=== PATIENT | female | born 1990 | race African-American/Black ===

== ENCOUNTER 2023-11-08 22:28 | Inpatient (IN) ==
[2023-11-08 23:58] LABS: Adenovirus PCR Not Detected (NotDetected); Bordetella parapertussis PCR Not Detected (NotDetected); Bordetella pertussis PCR Not Detected (NotDetected); Chlamydia pneumoniae PCR Not Detected (NotDetected); Coronavirus 229E PCR Not Detected (NotDetected); Coronavirus CoV-2 (COVID19)PCR Not Detected (NotDetected); Coronavirus HKU1 PCR Not Detected (NotDetected); Coronavirus NL63 PCR Not Detected (NotDetected); Coronavirus OC43PCR Not Detected (NotDetected); Human Metapneumovirus PCR Not Detected (NotDetected); Influenza A PCR Not Detected (NotDetected); Influenza B PCR Not Detected (NotDetected); Mycoplasma pneumoniae PCR Not Detected (NotDetected); Parainfluenza Virus 1 PCR Not Detected (NotDetected); Parainfluenza Virus 2 PCR Not Detected (NotDetected); Parainfluenza Virus 3 PCR Not Detected (NotDetected); Parainfluenza Virus 4 PCR Not Detected (NotDetected); Respiratory Syncytial VirusPCR Not Detected (NotDetected); Rhinovirus/Enterovirus PCR Not Detected (NotDetected)
--- NOTE | 2023-11-09 00:21 | Emergency Department Note ---
History of Present Illness General Chief complaint: Arm Pain Stated complaint: R Arm Pain, Fistula Problems Time Seen by Provider: 11/08/23 22:43 History of Present Illness Maximum Pain Intensity: 7 This 33-year-old female who was just discharged from [facility] yesterday to [facility] with a history of lupus that was hospitalized for 2 weeks presents the ER complaining of right arm pain for the past 2 weeks. Patient started states she is not sure what exactly happened to her arm. she does not remember much from her admission to [facility]. She was admitted for renal failure and has a fistula placed. She has been receiving dialysis Sunday. Patient was a subjective fever and chills and right bicep pain. She thinks she might of had an IV there. Patient denies chest pain, dyspnea, cough, congestion, leg pain or swelling. I pulled the records from [facility] and the patient was admitted for acute kidney injury that was exacerbated by lupus nephritis flare. She then had a renal biopsy that caused a hemorrhage to the kidney requiring arterial embolism. She then suffered from severe anemia from this. She then was transfused blood and experienced a delayed hemolytic transfusion reaction attributed to the JKa antigen. 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 She was treated for spontaneous bacterial peritonitis with multiple antibiotics. Allergies Allergy/AdvReac Type Severity Reaction Status Date / Time No Known Allergies Allergy Unverified 11/09/23 02:51 Past Med/Surg History Social History Feels Safe at Home: Yes Review of Systems A total of 10 systems reviewed and were otherwise negative Physical Exam Vital Signs Vital Signs - 24 hr 11/08/23 22:52 11/08/23 23:02 11/08/23 23:02 Temperature 37.5 C 37.5 C Temperature Source Oral Oral Pulse Rate 127 H 125 H Pulse Rate [Apical] 125 H Respiratory Rate 20 20 Blood Pressure 133/93 Blood Pressure [Left Arm] 133/93 Blood Pressure Mean 106 Blood Pressure Mean [Left Arm] 106 Pulse Oximetry 99 99 Oxygen Delivery Method Room Air Room Air Sepsis Recent Fever Within 48 Hours No Sepsis New/Unexplained Change in Mental Status No Sepsis Action Taken by Nursing No Action Required 11/08/23 23:02 11/09/23 02:12 11/09/23 02:52 Temperature Temperature Source Pulse Rate 127 H Pulse Rate [Apical] 128 H Respiratory Rate 17 Blood Pressure Blood Pressure [Left Arm] 128/83 Blood Pressure Mean Blood Pressure Mean [Left Arm] 98 Pulse Oximetry 99 98 Oxygen Delivery Method Room Air Room Air Sepsis Recent Fever Within 48 Hours Sepsis New/Unexplained Change in Mental Status Sepsis Action Taken by Nursing VITALS: Vitals are noted on the nurse's note and reviewed by myself. Vital signs stable. GENERAL: Pleasant female speaking in full sentences, in no acute distress, nondiaphoretic, well-developed well-nourished. SKIN: Capillary reflex less than 2 seconds. HEENT: Normocephalic. PERRLA. EOMI. Nares patent. Mucous membranes moist. Neck is supple without nuchal rigidity. HEART: Regular rate and rhythm LUNGS: Clear to auscultation bilaterally without wheezes, rales or rhonchi. No retractions or accessory muscle use. ABDOMEN: Positive bowel sounds x 4. Normal tympanic percussion. Soft, nontender, without masses or organomegaly. Rfancis sign negative. No guarding or rebound tenderness. no CVA tenderness MUSCULOSKELETAL: No gross musculoskeletal defects. Right bicep region tender to palpation indurated. Radial pulses +2 equal present bilaterally. Fistula to the left subclavian area without signs of infection. NEURO: Patient was alert and oriented to person place and time. No focal neurological deficits. Course Administered Medications Discontinued Medications Ceftriaxone Sodium (Rocephin) 1,000 mg in 50 mls @ 100 mls/hr IV NOW STA Stop: 11/09/23 03:17 Last Admin: 11/09/23 02:54 Dose: 100 mls/hr Documented By: DAVON Critical Care Time Critical Care Time: Yes Total Critical Care Time: 35 I have personally spent 35 minutes of critical care time in the direct management of this patient. This includes bedside care, interpretation of diagnostic studies, and testing, discussion with consultants, patient, and family members, and other required patient management activities. This 35 minutes is in excess of all separately billable procedures. Medical Decision Making Medical Records Attestation: I reviewed the patient's medical records. Home Medications Current Medication List: was personally reviewed by me Laboratory Data Attestation: I reviewed the patient's lab results. 11/09/23 00:20 11/09/23 00:20 Lab Results 11/08/23 11/09/23 11/09/23 Range/Units 22:54 00:20 02:10 WBC 1.60 L (4.8-10.8) K/ul RBC 2.66 L (4.20-5.40) M/uL Hgb 7.6 L (12.0-16.0) g/dl Hct 24.5 L (37.0-47.0) % MCV 92.1 (80.0-100.0) fL MCH 28.6 (25.0-34.0) pg MCHC 31.0 L (32.0-36.0) g/dL RDW Std Deviation 64.7 H (36.4-46.3) fL RDW Coeff of Evelio 19.6 H (11.5-14.5) % Plt Count 131 (130-400) K/uL MPV 10.4 (9.4-12.4) fL Neutrophils % (Manual) 51 % Lymphocytes % (Manual) 27 % Monocytes % (Manual) 18 % Eosinophils % (Manual) 1 % Myelocytes % (Man) 3 % Neutrophils # (Manual) 0.82 L (1.40-6.50) K/uL Total Absolute Neuts 0.82 L* (1.4-6.5) K/uL Lymphocytes # (Manual) 0.43 L (1.2-3.4) K/uL Total Abs Lymphocytes 0.43 L (1.2-3.4) K/uL Monocytes # (Manual) 0.29 (0.11-0.59) K/uL Eosinophils # (Manual) 0.02 (0-0.50) K/uL Myelocytes # (Manual) 0.05 H (0-0) K/uL Sodium 138 (136-145) mmol/L Potassium 4.4 (3.5-5.1) mmol/L Chloride 99 (98-107) mmol/L Carbon Dioxide 21 (21-32) mmol/L Anion Gap 18 H (3-11) BUN 37 H (6-23) mg/dl Creatinine 5.24 H* (0.6-1.2) mg/dl Est Cr Clr Drug Dosing 12.9 ml/min Est GFR ( Amer) 11.6 ml/min Est GFR (Non-Af Amer) 10.0 ml/min BUN/Creatinine Ratio 7.1 L (10-20) Glucose 73 (70-99(Fasting)) mg/dl Lactate 1.4 (0.4-2.0) mmol/L Calcium 8.8 (8.6-10.3) mg/dl Magnesium 1.8 (1.7-2.4) mg/dl Total Bilirubin 0.7 (0.2-1.0) mg/dl Direct Bilirubin 0.1 (0-0.2) mg/dl AST 24 (13-39) U/L ALT 8 (7-52) U/L Alkaline Phosphatase 86 (34-104) U/L Total Creatine Kinase 13 L (26-192) U/L Troponin I High Sens 25.9 H 27.4 H (0-14) pg/ml Total Protein 6.5 (6.0-8.3) gm/dl Albumin 3.1 L (3.4-5.0) gm/dl Procalcitonin 2.18 H (0-0.5) ng/ml HCG, Qual Negative (Negative) Adenovirus (PCR) Not Detected (NotDetected) B. pertussis DNA (PCR) Not Detected (NotDetected) B.parapertussis DNA PCR Not Detected (NotDetected) C. pneumoniae DNA (PCR) Not Detected (NotDetected) Coronavirus OC43 (PCR) Not Detected (NotDetected) Coronavirus HKU1 (PCR) Not Detected (NotDetected) Coronavirus 229E (PCR) Not Detected (NotDetected) SARS-CoV-2 (PCR) Not Detected (NotDetected) Coronavirus NL63 (PCR) Not Detected (NotDetected) Human Metapneumovir PCR Not Detected (NotDetected) Influenza Type A (PCR) Not Detected (NotDetected) Influenza Type B (PCR) Not Detected (NotDetected) M. pneumoniae (PCR) Not Detected (NotDetected) Parainfluenza 1 (PCR) Not Detected (NotDetected) Parainfluenza 2 (PCR) Not Detected (NotDetected) Parainfluenza 3 (PCR) Not Detected (NotDetected) Parainfluenza 4 (PCR) Not Detected (NotDetected) RSV (PCR) Not Detected (NotDetected) Entero/Rhino (PCR) Not Detected (NotDetected) Imaging Data Attestation: I personally reviewed and interpreted this imaging study as follows: Radiologist's Impression: Venous Doppler Study 11/08/23 22:52 Exam(s): US VENOUS RIGHT UPPER EXTREMITY EXAM: US Duplex Right Upper Extremity Veins CLINICAL HISTORY: Reason for exam: ? DVT. TECHNIQUE: Real-time duplex ultrasound scan of the right upper extremity veins integrating B-mode two-dimensional vascular structure, Doppler spectral analysis, color flow Doppler imaging and compression. COMPARISON: None. FINDINGS: Deep veins: Unremarkable. No DVT in the internal jugular, subclavian, axillary, or brachial veins. The veins demonstrate normal color flow, are normally compressible, with normal phasic flow and/or augmentation response. Superficial veins: Unremarkable. No thrombus in the visualized basilic and cephalic veins. Soft tissues: No acute findings. IMPRESSION: No ultrasonographic evidence of deep venous thrombosis involving the right upper extremity. Electronically signed by: Lauren Merrill MD 11/09/23 02:42 AM MDM Narrative Prior records reviewed and summarized above. Triage Nursing notes reviewed. Additional history obtained from the EMS The patient's history was concerning for swelling and pain in the arm Differential diagnosis: Etiologies such as DVT, musculoskeletal, infection, joint effusion, trauma, lymphedema, idiopathic, CHF, as well as others were entertained.. Physical examination: The physical examination revealed Neurovascularly intact. ER treatment provided: An order was placed for continuous cardiac monitoring. The monitor shows a rate of 60-1 30 with a sinus rhythm per my interpretation. Rocephin, heparin with bolus On reassessment the patient felt better. Diagnostics interpreted by me: The labs Independently Interpreted by myself revealed stable anemia per chart review from [facility] records, stable creatinine per chart review per dental records. Patient is due for dialysis in the morning Blood cultures pending Imaging studies: Chest x-ray with no acute consolidation, pneumothorax or free air per my independent interpretation DVT as above Consultation: A consultation was placed with the hospitalist. The case was discussed and diagnostics were reviewed. The patient was evaluated in the ER for further treatment. Hospitalist does recommend heparin with bolus. This appears to be consistent with extensive DVT to the right arm and subclavian area. Patient started on heparin with bolus and this was discussed with the admitting hospitalist. Patient's labs were stable from [place] records from yesterday. Patient is agreeable treatment plan of admission. Patient was admitted to the medical service for further evaluation and treatment. Patient was given Rocephin for possible cellulitis to the right bicep region. By the evaluation outlined above emergent etiologies such as septic joint, trauma, CHF, as well as others were deemed relatively unlikely. The pt informed about the findings as listed above. All questions were answered and pleased with the treatment. The chart was completed utilizing [employer] Speech voice recognition software. Grammatical errors, random word insertions, pronoun errors, and incomplete sentences are an occassional consequence of this system due to software limitations, ambient noise, and hardware issues. Any formal questions or concerns about the content, text, or information contained within the body of this dictation should be directly addressed to the physician purchasing administrative assistant for clarification. Impression & Plan Acute deep vein thrombosis (DVT) of right upper extremity, Cellulitis of arm Discharge Plan Visit Data Chief Complaint: Arm Pain Stated Complaint: R Arm Pain, Fistula Problems ED Provider: Asmita Goldman ED Midlevel Provider: Angelina Gutiérrez Discharge Problem: Acute deep vein thrombosis (DVT) of right upper extremity, Cellulitis of arm Patient Disposition: Admitted As Inpatient Condition: Fair Forms Stand Alone Forms: [facility] Referrals Referrals: PCP,NO [Physician] - Discharge Problem: Acute deep vein thrombosis (DVT) of right upper extremity Qualifiers: Affected thrombotic vein of extremity: unspecified vein of extremity Qualified Code(s): I82.621 - Acute embolism and thrombosis of deep veins of right upper extremity
[2023-11-09 01:08] LABS: Pregnancy Test, Serum Negative (Negative)
[2023-11-09 01:18] LABS: Albumin Level 3.1 gm/dl (3.4-5.0); BUN Creatinine Ratio 7.1 (10-20); Bilirubin Direct 0.1 mg/dl (0-0.2); Bilirubin,Total 0.7 mg/dl (0.2-1.0); Calcium 8.8 mg/dl (8.6-10.3); Creatinine Clr Calc Pharmacy 12.9 ml/min; Est GFR (African American) 11.6 ml/min; Magnesium 1.8 mg/dl (1.7-2.4); Potassium 4.4 mmol/L (3.5-5.1); Total Protein 6.5 gm/dl (6.0-8.3); Troponin I High Sensitivity 25.9 pg/ml (0-14)
[2023-11-09 01:47] LABS: ALC (manual) 0.43 K/uL (1.2-3.4); ANC (manual) 0.82 K/uL (1.4-6.5); Eosinophils # (manual) 0.02 K/uL (0-0.50); Eosinophils % (manual) 1 %; Hematocrit (blood only) 24.5 % (37.0-47.0); Hemoglobin 7.6 g/dl (12.0-16.0); Lymphocytes # (manual) 0.43 K/uL (1.2-3.4); Lymphocytes % (manual) 27 %; Mean Corpuscular Hemoglobin 28.6 pg (25.0-34.0); Mean Corpuscular Volume 92.1 fL (80.0-100.0); Mean Platelet Volume 10.4 fL (9.4-12.4); Monocytes # (manual) 0.29 K/uL (0.11-0.59); Monocytes % (manual) 18 %; Myelocytes # (manual) 0.05 K/uL (0-0); Myelocytes % (manual) 3 %; Neutrophils # (manual) 0.82 K/uL (1.40-6.50); Neutrophils % (manual) 51 %; Platelet Count 131 K/uL (130-400); RDW Coefficient of Variation 19.6 % (11.5-14.5); RDW Standard Deviation 64.7 fL (36.4-46.3); Red Blood Count 2.66 M/uL (4.20-5.40)
--- NOTE | 2023-11-09 02:43 | Ultrasound Report ---
Exam(s): US VENOUS RIGHT UPPER EXTREMITY EXAM: US Duplex Right Upper Extremity Veins CLINICAL HISTORY: Reason for exam: ? DVT. TECHNIQUE: Real-time duplex ultrasound scan of the right upper extremity veins integrating B-mode two-dimensional vascular structure, Doppler spectral analysis, color flow Doppler imaging and compression. COMPARISON: None. FINDINGS: Deep veins: Unremarkable. No DVT in the internal jugular, subclavian, axillary, or brachial veins. The veins demonstrate normal color flow, are normally compressible, with normal phasic flow and/or augmentation response. Superficial veins: Unremarkable. No thrombus in the visualized basilic and cephalic veins. Soft tissues: No acute findings. IMPRESSION: No ultrasonographic evidence of deep venous thrombosis involving the right upper extremity. Electronically signed by: Lauren Merrill MD 11/09/23 02:42 AM
[2023-11-09] MEDS: cefTRIAXone SODIUM 1,000 MG/50 ML BAG IV STA (02:54)
[2023-11-09] MEDS ORDERED: HEPARIN SOD (PORCINE) 1000 UNIT/ML IV ONE (03:46)
[2023-11-09 04:38] LABS: ANTI-Xa, UFH(UnfractionatedHep 0.18 IU/ml (0.3-0.7); INR 1.1 (0.9-1.1); Prothrombin Time 11.5 Seconds (9.0-12.0)
[2023-11-09] MEDS: Heparin IV Adult Wt-Based Standard w/ INITIAL Bolus Protocol IV STA (04:50)
[2023-11-09] MEDS: HEPARIN SOD (PORCINE) 1000 UNIT/ML IV ONE (04:51)
[2023-11-09] MEDS: HEPARIN SODIUM/DEXTROSE 25,000 UNITS/500 ML BAG IV SCH (04:51)
--- NOTE | 2023-11-09 07:21 | XRay Report ---
XR chest 1V portable HISTORY: Sepsis COMPARISON: None. FINDINGS: There are low lung volumes. No pneumothorax. The cardiac silhouette is borderline enlarged. The left central venous catheter which terminates at the superior cavoatrial junction. Hazy appearan ce to the left lung base may represent a small pleural effusion or opacity. The right lung is clear. No evidence for pulmonary edema. IMPRESSION: Hazy appearance to left lung base may represent a small layering pleural effusion versus airspace opa city. ACT 112: Negative or not required by law. Electronically signed by: Greg Day M.D. 11/09/2023 7:19 AM
[2023-11-09] MEDS ORDERED: POLYETHYLENE (MIRALAX) 17 GM PACK PO PRN (07:41)
[2023-11-09] MEDS ORDERED: ACETAMINOPHEN 325 MG TAB PO PRN (07:41)
[2023-11-09] MEDS ORDERED: NITROGLYCERIN SL 0.4 MG/TAB TAB SL PRN (07:41)
[2023-11-09 08:14] LABS: Mean Corpuscular Hemoglobin 28.8 pg (25.0-34.0); Mean Corpuscular Hgb Conc 31.6 g/dL (32.0-36.0); Mean Corpuscular Volume 91.2 fL (80.0-100.0); Mean Platelet Volume 10.5 fL (9.4-12.4); Platelet Count 136 K/uL (130-400); RDW Coefficient of Variation 19.6 % (11.5-14.5); RDW Standard Deviation 64.6 fL (36.4-46.3); Red Blood Count 2.26 M/uL (4.20-5.40); White Blood Count 1.36 K/ul (4.8-10.8)
[2023-11-09 08:44] LABS: Calcium 8.4 mg/dl (8.6-10.3); Magnesium 1.8 mg/dl (1.7-2.4); Potassium 4.7 mmol/L (3.5-5.1)
--- NOTE | 2023-11-09 08:51 | Cardiology Consultation ---
Date of Consultation November 09, 2023 Assessment & Plan (1) Sinus tachycardia: (2) Cellulitis of arm: (3) Acute deep vein thrombosis (DVT) of right upper extremity: (4) SLE (systemic lupus erythematosus): (5) Hemolytic anemia: Plan 1. Sinus tachycardia 2. Recurrent pericarditis 3. 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 SLE 6. Anticardiolipin antibody 7. 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 Case discussed with Dr. Zheng. I spent a total of 44 minutes on the date of service in preparation, delivery, and documentation of the care provided to this patient, excluding any time spent in the performance of separately billed services. Adriana Danielle PA-C Department of Cardiology, [facility] This chart was completed in part utilizing Speech Voice Recognition Software. Grammatical errors, random word insertions, pronoun errors, and incomplete sentences are an occasional consequence of this system due to software limitations, ambient noise, and hardware issues. Any formal questions or concerns about the content, text, or information contained within the body of this dictation should be directly addressed to the provider for clarification. Supervising Physician Co-Signing Physician Notes Attending attestation: Case reviewed with the advanced practitioner. I have personally performed a history and physical examination on the patient. I have reviewed the advanced practitioner's documentation on the date of service referenced in note, and I agree with, and take responsibility for the plan of care. Patient tells me she started dialysis 3 weeks ago via tunneled left-sided catheter. Patient describes longstanding history of sinus tachycardia,symptomatic PVCs and PACs dating back to 2019, started on metoprolol. Metoprolol titrated to 150mg BID by 2020 with improvement in symptoms. It appears she weaned off previously due to concerns of low blood pressure. Remains on metoprolol tartrate 25mg BID since 2021. EKG reveals sinus tachycardia at 126 bpm, with normal ST segments. Telemetry reveals sinus tachycardia in the 120s. Would continue patient's outpatient dose of metoprolol to tartrate to 25 mg twice daily for now without titration as tachycardia not unexpected in the setting of significant anemia and DVT. Will repeat echocardiogram to assess for underlying structural heart disease and to evaluate for pericardial effusion. I spent a total of 25 minutes coordinating, documenting, and providing care for this patient excluding time spent in the performance of separately billed services or time spent by another provider. Fransico Zheng DO History of Present Illness Reason for Consultation: Sinus tachycardia [facility] Attending Physician: Mari Marcano History of Present Illness Dena Alvarado is a 33 year old female with PMHx sinus tachycardia, recurrent pericarditis, ESRD, SLE, anticardiolipin antibody, pseudotumor cerebri, secondary autoimmune hemolytic anemia due to SLE, CMV viremia who presented to the ED from [facility] with R arm pain/numbness x2 weeks. Upon further work-up patient was found to have DVT and elevated procal concerning for cellulitis of R upper arm. Given Rocephin and started on heparin drip in the ED. EKG with sinus tachycardia HR 133. Receiving dialysis MWF. Patient is from the [facility]. Admitted 09/28-11/08/2023. Initially presented to [facility] for shortness of breath, transferred to [facility] with acute on chronic renal failure likely exacerbated by lupus nephritis flare, hemolytic transfusion reaction, and CMV viremia. Patient underwent renal biopsy which revealed collapsing glomerulonephritis a form of focal segmental glome rulonephritis treated with pulse dose steroids. Following biopsy she developed perinephritic hematoma requiring arterial embolization. Patient then developed severe posthemorrhagic anemia requiring multiple blood transfusions and delayed hemolytic transfusion reaction due to JKa antigen. Patient also tested positive for CMV viremia. Treated for suspected CMV colitis and spontaneous bacterial peritonitis with valganciclovir, cefepime and metronidazole. It appears patient was in sinus tachycardia throughout this admission with HR ranging from 120- 160's. Per chart review in [facility] patient with sinus tachycardiac, symptomatic PVCs and PACs dating back to 2019, started on metoprolol. Patient titrated to 150mg BID by 2020 with improvement in symptoms. It appears she weaned off previously due to blood pressure issues. Remains on metoprolol tartrate 25mg BID since 2021. Patient reports shortness of breath and weakness. Has felt short of breath dating back to early September prior to admission. She was walking with a walker at discharge from [facility]. Today she feels very weak and even unable to ambulate. Tells me she has had a higher heart rate for most of her life. Denies palpitations, but can feel her heart beating faster. Denies chest pain, prior history of heart disease. Family Hx: Mother- [place], blood clot, lupus, renal failure, CVA; aunt with sarcoidosis Allergies Allergy/AdvReac Type Severity Reaction Status Date / Time No Known Allergies Allergy Unverified 11/09/23 02:51 Home Medications Medication Instructions Recorded Confirmed Type cholecalciferol (vitamin D3) 25 25 mcg PO DAILY 11/09/23 11/09/23 History mcg (1,000 unit) chewable tablet (Vitamin D3) ferrous sulfate 325 mg (65 mg 325 mg PO DAILY 11/09/23 11/09/23 History iron) tablet (FeroSul) folic acid 1 mg tablet 1 mg PO DAILY 11/09/23 11/09/23 History hydroxychloroquine 200 mg tablet 400 mg PO HS 11/09/23 11/09/23 History (Plaquenil) metoprolol tartrate 25 mg tablet 25 mg PO BID 11/09/23 11/09/23 History omeprazole 20 mg tablet,delayed 20 mg PO DAILY 11/09/23 11/09/23 History release prednisone 5 mg tablet 5 mg PO DAILY 11/09/23 11/09/23 History sertraline 25 mg tablet 25 mg PO DAILY 11/09/23 11/09/23 History Patient History Social History Feels Safe at Home: Yes Review of Systems Review of Systems: All systems reviewed & are unremarkable except as noted in HPI & below Constitutional: + fatigue and + weakness Respiratory: + dyspnea on exertion Physical Exam Constitutional: WD/WN, vitals as above + ill appearing and comfortable Eyes: PERRL, conjunctivae normal, anicteric sclerae Neck: trachea midline, no thyromegaly Respiratory: normal respiratory effort, lungs clear to auscultation Cardiovascular: Rate/Rhythm: + tachycardic Heart Sounds: normal S1 and normal S2 Palpation: normal PMI Vessels: normal peripheral pulses No LE edema Gastrointestinal (Abdomen): normal bowel sounds, soft, nontender, no hepatosplenomegaly Musculoskeletal: no cyanosis or clubbing, extremities motor strength 5/5 Skin: no rashes, warm and dry Psychiatric: A+Ox3, euthymic affect Results & Data Vital Signs (Past 12 Hours) Vital Signs Temp Pulse Pulse Resp BP BP Pulse Ox 11/09/23 07:52 131 H 11/09/23 06:28 121 H 11/09/23 05:30 124 H 21 99 11/09/23 05:00 128 H 22 123/88 98 11/09/23 04:30 123 H 22 98 11/09/23 04:00 120 H 23 98 11/09/23 03:30 126 H 18 99 11/09/23 03:00 124 H 24 121/85 98 11/09/23 02:52 127 H 11/09/23 02:12 128 H 17 128/83 98 11/08/23 23:02 99 11/08/23 23:02 37.5 C 125 H 20 133/93 99 11/08/23 23:02 37.5 C 125 H 20 133/93 99 11/08/23 22:52 127 H O2 Del Method 11/09/23 07:52 11/09/23 06:28 11/09/23 05:30 11/09/23 05:00 11/09/23 04:30 11/09/23 04:00 11/09/23 03:30 11/09/23 03:00 11/09/23 02:52 11/09/23 02:12 Room Air 11/08/23 23:02 Room Air 11/08/23 23:02 Room Air 11/08/23 23:02 Room Air 11/08/23 22:52 Laboratory Results Cardiac Enzymes 11/09/23 11/09/23 11/09/23 Range/Units 00:20 02:10 07:49 AST 24 (13-39) U/L Troponin I High Sens 25.9 H 27.4 H 27.8 H (0-14) pg/ml Coagulation 11/09/23 Range/Units 03:50 PT 11.5 (9.0-12.0) Seconds CBC 11/09/23 11/09/23 Range/Units 00:20 07:14 WBC 1.60 L 1.36 L (4.8-10.8) K/ul RBC 2.66 L 2.26 L (4.20-5.40) M/uL Hgb 7.6 L 6.5 L* (12.0-16.0) g/dl Hct 24.5 L 20.6 L* (37.0-47.0) % Plt Count 131 136 (130-400) K/uL Neut # (Auto) 0.63 L* (1.40-6.50) K/uL Lymph # (Auto) 0.42 L (1.20-3.40) K/uL [place] # (Auto) 0.26 (0.11-0.59) K/uL Eos # (Auto) 0.00 (0.00-0.50) K/uL Baso # (Auto) 0.00 (0.00-0.20) K/uL Comprehensive Metabolic Panel 11/09/23 11/09/23 Range/Units 00:20 07:49 Sodium 138 138 (136-145) mmol/L Potassium 4.4 4.7 (3.5-5.1) mmol/L Chloride 99 100 (98-107) mmol/L Carbon Dioxide 21 23 (21-32) mmol/L BUN 37 H 42 H (6-23) mg/dl Creatinine 5.24 H* 5.47 H* (0.6-1.2) mg/dl Glucose 73 91 (70-99(Fasting)) mg/dl Calcium 8.8 8.4 L (8.6-10.3) mg/dl Direct Bilirubin 0.1 (0-0.2) mg/dl AST 24 (13-39) U/L ALT 8 (7-52) U/L Alkaline Phosphatase 86 (34-104) U/L Total Protein 6.5 (6.0-8.3) gm/dl Albumin 3.1 L (3.4-5.0) gm/dl Intake and Output 11/08/23 11/09/23 11/09/23 22:59 06:59 14:59 Intake Total 50 / 50 Balance 50 / 50 Intake: IV 50 / 50 [id number] SODIUM 1,000 mg In 50 / 50 50 ml @ 100 mls/hr IV NOW STA Rx#:[id number] Other: Weight 65.8 kg Weight Measurement Method Built in [facility] Diagnostic Findings EKG 11/08/2023 ST 126bpm ECHO limited 10/12/2023 The examination is limited quality but adequate for evaluation of the referral indication. The qualitative LV ejection fraction is >70% (hyperdynamic). The left ventricular wall motion is normal by limited analysis. All left ventricular segments are not visualized. No pericardial effusion is noted. ECHO 09/28/2023 The qualitative LV ejection fraction is 60-64% (normal). No LV segmental wall motion abnormalities. The right ventricular cavity size is normal (basal dimension < 4.2 cm RV apical 4 chamber view). The right ventricular systolic function is qualitatively normal. No significant valvular disease is present Duplex RUE 11/08/2023 Upon further review, note is made of deep venous thrombus within the right innominate vein that extends into the right internal jugular vein. In addition, there is a focus of deep venous thrombus within the right subclavian vein that extends into the right cephalic vein. CXR 11/07/2023 Hazy appearance to left lung base may represent a small layering pleural effusion versus airspace opacity. (3) Acute deep vein thrombosis (DVT) of right upper extremity Affected thrombotic vein of extremity: unspecified vein of extremity Qualified Code(s): I82.621 - Acute embolism and thrombosis of deep veins of right upper extremity
[2023-11-09 08:53] LABS: BUN Creatinine Ratio 7.7 (10-20); Creatinine Clr Calc Pharmacy 12.4 ml/min; Est GFR (Non-African American) 9.5 ml/min; Troponin I High Sensitivity 27.8 pg/ml (0-14)
[2023-11-09 08:55] LABS: Hematocrit (blood only) 20.6 % (37.0-47.0); Hemoglobin 6.5 g/dl (12.0-16.0); Immature Granulocytes # (auto) 0.05 K/uL (0.01-0.20); Immature Granulocytes % (auto) 3.7 %; Lymphocytes # (auto) 0.42 K/uL (1.20-3.40); Lymphocytes % (auto) 30.9 %; Monocytes # (auto) 0.26 K/uL (0.11-0.59); Monocytes % (auto) 19.1 %; Neutrophils # (auto) 0.63 K/uL (1.40-6.50); Neutrophils % (auto) 46.3 %
--- NOTE | 2023-11-09 09:02 | History & Physical Report ---
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 Patient was initially presented to [facility] with shortness of breath and cough and fever ongoing for a week. Initial workup showed severe ABIODUN. She was treated with IV antibiotics for possible sepsis and subsequently transferred to [facility] for further evaluation. Blood cultures were negative. IgM Lyme antibody was positive and was started on doxycycline. CT PE study was considered for shortness of breath but because of rapidly worsening kidney function CT PE was not done. Her ABIODUN is thought to be possibly from exacerbated lupus nephritis. Renal biopsy findings suggested collapsing glomerulonephritis, form of focal segmental glomera sclerosis. She was treated with pulse dose steroids and started on intermittent hemodialysis due to deteriorating kidney function. Following the biopsy she developed perinephric hematoma and required arterial embolization. She suffered from severe p osthemorrhagic anemia needing multiple blood transfusions and experienced a delayed hemolytic transfusion reaction attributed to the JKa antigen. She was also tested positive for CMV viremia. She was treated for suspected CMV colitis and spontaneous bacterial peritonitis with valganciclovir, cefepime and metronidazole.. ID recommended weekly CMV titers for 4 weeks and to be followed by ID outpatient 6 to 8 weeks.Also to be followed by Nephrology, rheumatology and hematology Acute DVT right innominate vein that extends into the right internal jugular vein. In addition, there is a focus of deep venous thrombus within the right subclavian vein that extends into the right cephalic vein. Started on IV heparin close Monitor h and h ordered echo. Sinus tachycardia on metoprolol follow echo cardio consult Cellulitis of RT arm? 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 Anemia Hb 7.6 today Hb 6.9 and hb 7.1 on 10/29/23 at [place] Close monitor while on iv heparin DVT px on iv heparin Disposition Tele Full code per discussion with patient. 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 Patient was initially presented to [facility] with shortness of breath and cough and fever ongoing for a week. Initial workup showed severe ABIODUN. She was treated with IV antibiotics for possible sepsis and subsequently transferred to [facility] for further evaluation. Blood cultures were negative. IgM Lyme antibody was positive and was started on doxycycline. CT PE study was considered for shortness of breath but because of rapidly worsening kidney function CT PE was not done. Her ABIODUN is thought to be possibly from exacerbated lupus nephritis. Renal biopsy findings suggested collapsing glomerulonephritis, form of focal segmental glomera sclerosis. She was treated with pulse dose steroids and started on intermittent hemodialysis due to deteriorating kidney function. Following the biopsy she developed perinephric hematoma and required arterial embolization. She suffered from severe posthemorrhagic anemia needing multiple blood transfusions and experienced a delayed hemolytic transfusion reaction attributed to the JKa antigen. She was also tested positive for CMV viremia. She was treated for suspected CMV colitis and spontaneous bacterial peritonitis with valganciclovir, cefepime and metronidazole.. ID recommended weekly CMV titers for 4 weeks and to be followed by ID outpatient 6 to 8 weeks.Also to be followed by Nephrology, rheumatology and hematology Past medical history. As mentioned above. Past surgical history. Colonoscopy. Dental surgery. IR artery embolization. IR biopsy. Reduction of breast. Tonsillectomy adenoidectomy. Family history. Mother had blood clot. [place]. Lupus. Renal failure. Stroke multiple. COVID. Aunt had sarcoidosis. Maternal aunt had breast cancer. Allergies Allergy/AdvReac Type Severity Reaction Status Date / Time No Known Allergies Allergy Unverified 11/09/23 02:51 Home Medications Medication Instructions Recorded Confirmed Type cholecalciferol (vitamin D3) 25 25 mcg PO DAILY 11/09/23 11/09/23 History mcg (1,000 unit) chewable tablet (Vitamin D3) ferrous sulfate 325 mg (65 mg 325 mg PO DAILY 11/09/23 11/09/23 History iron) tablet (FeroSul) folic acid 1 mg tablet 1 mg PO DAILY 11/09/23 11/09/23 History hydroxychloroquine 200 mg tablet 400 mg PO HS 11/09/23 11/09/23 History (Plaquenil) metoprolol tartrate 25 mg tablet 25 mg PO BID 11/09/23 11/09/23 History omeprazole 20 mg tablet,delayed 20 mg PO DAILY 11/09/23 11/09/23 History release prednisone 5 mg tablet 5 mg PO DAILY 11/09/23 11/09/23 History sertraline 25 mg tablet 25 mg PO DAILY 11/09/23 11/09/23 History Past Med/Surg History Social History Feels Safe at Home: Yes Review of Systems Review of Systems: All systems reviewed & are unremarkable except as noted in HPI & below Physical Exam Physical Exam: General- Not in acute distress Head- atraumatic Eyes- PERRL. ENT- oropharynx dry Neck- supple, no JVD. Lungs- clear to auscultation no wheezing or crackles Heart- regular rhythm;Tachycardia no murmur, no gallop. Abdomen- normal bowel sounds, soft, nontender, no distension Extremities- Right forearm swollen Neuro- alert, oriented PERRL, no facial palsy; no dysarthria; moves extremities. Results & Data Results & Data Vital Signs (Past 12 Hours) Vital Signs Temp Pulse Pulse Resp BP BP Pulse Ox 11/09/23 07:52 131 H 11/09/23 06:28 121 H 11/09/23 05:30 124 H 21 99 11/09/23 05:00 128 H 22 123/88 98 11/09/23 04:30 123 H 22 98 11/09/23 04:00 120 H 23 98 11/09/23 03:30 126 H 18 99 11/09/23 03:00 124 H 24 121/85 98 11/09/23 02:52 127 H 11/09/23 02:12 128 H 17 128/83 98 11/08/23 23:02 99 11/08/23 23:02 37.5 C 125 H 20 133/93 99 11/08/23 23:02 37.5 C 125 H 20 133/93 99 11/08/23 22:52 127 H O2 Del Method 11/09/23 07:52 11/09/23 06:28 11/09/23 05:30 11/09/23 05:00 11/09/23 04:30 11/09/23 04:00 11/09/23 03:30 11/09/23 03:00 11/09/23 02:52 11/09/23 02:12 Room Air 11/08/23 23:02 Room Air 11/08/23 23:02 Room Air 11/08/23 23:02 Room Air 11/08/23 22:52 Diagnostic Findings Laboratory Results WBC 1.36 K/ul (4.8-10.8) L 11/09/23 07:14 RBC 2.26 M/uL (4.20-5.40) L 11/09/23 07:14 Hgb 6.5 g/dl (12.0-16.0) L* 11/09/23 07:14 Hct 20.6 % (37.0-47.0) L* 11/09/23 07:14 MCV 91.2 fL (80.0-100.0) 11/09/23 07:14 MCH 28.8 pg (25.0-34.0) 11/09/23 07:14 MCHC 31.6 g/dL (32.0-36.0) L 11/09/23 07:14 RDW Std Deviation 64.6 fL (36.4-46.3) H 11/09/23 07:14 RDW Coeff of Evelio 19.6 % (11.5-14.5) H 11/09/23 07:14 Plt Count 136 K/uL (130-400) 11/09/23 07:14 MPV 10.5 fL (9.4-12.4) 11/09/23 07:14 Immature Gran % (Auto) 3.7 % 11/09/23 07:14 Neut % (Auto) 46.3 % 11/09/23 07:14 Lymph % (Auto) 30.9 % 11/09/23 07:14 [place]ides % (Auto) 19.1 % 11/09/23 07:14 Eos % (Auto) 0.0 % 11/09/23 07:14 Baso % (Auto) 0.0 % 11/09/23 07:14 Neut # (Auto) 0.63 K/uL (1.40-6.50) L* 11/09/23 07:14 Lymph # (Auto) 0.42 K/uL (1.20-3.40) L 11/09/23 07:14 Rapides # (Auto) 0.26 K/uL (0.11-0.59) 11/09/23 07:14 Eos # (Auto) 0.00 K/uL (0.00-0.50) 11/09/23 07:14 Baso # (Auto) 0.00 K/uL (0.00-0.20) 11/09/23 07:14 Immature Gran # (Auto) 0.05 K/uL (0.01-0.20) 11/09/23 07:14 Neutrophils % (Manual) 51 % 11/09/23 00:20 Lymphocytes % (Manual) 27 % 11/09/23 00:20 Monocytes % (Manual) 18 % 11/09/23 00:20 Eosinophils % (Manual) 1 % 11/09/23 00:20 Myelocytes % (Man) 3 % 11/09/23 00:20 Neutrophils # (Manual) 0.82 K/uL (1.40-6.50) L 11/09/23 00:20 Total Absolute Neuts 0.82 K/uL (1.4-6.5) L* 11/09/23 00:20 Lymphocytes # (Manual) 0.43 K/uL (1.2-3.4) L 11/09/23 00:20 Total Abs Lymphocytes 0.43 K/uL (1.2-3.4) L 11/09/23 00:20 Monocytes # (Manual) 0.29 K/uL (0.11-0.59) 11/09/23 00:20 Eosinophils # (Manual) 0.02 K/uL (0-0.50) 11/09/23 00:20 Myelocytes # (Manual) 0.05 K/uL (0-0) H 11/09/23 00:20 PT 11.5 Seconds (9.0-12.0) 11/09/23 03:50 INR 1.1 (0.9-1.1) 11/09/23 03:50 Heparin Anti-Xa, Unfract 1.20 IU/ml (0.3-0.7) H* 11/09/23 07:14 Sodium 138 mmol/L (136-145) 11/09/23 07:49 Potassium 4.7 mmol/L (3.5-5.1) 11/09/23 07:49 Chloride 100 mmol/L (98-107) 11/09/23 07:49 Carbon Dioxide 23 mmol/L (21-32) 11/09/23 07:49 Anion Gap 15 (3-11) H 11/09/23 07:49 BUN 42 mg/dl (6-23) H 11/09/23 07:49 Creatinine 5.47 mg/dl (0.6-1.2) H* 11/09/23 07:49 Est Cr Clr Drug Dosing 12.4 ml/min 11/09/23 07:49 Est GFR ( Amer) 11.0 ml/min 11/09/23 07:49 Est GFR (Non-Af Amer) 9.5 ml/min 11/09/23 07:49 BUN/Creatinine Ratio 7.7 (10-20) L 11/09/23 07:49 Glucose 91 mg/dl (70-99(Fasting)) 11/09/23 07:49 Lactate 1.4 mmol/L (0.4-2.0) 11/09/23 00:20 Calcium 8.4 mg/dl (8.6-10.3) L 11/09/23 07:49 Magnesium 1.8 mg/dl (1.7-2.4) 11/09/23 07:49 Total Bilirubin 0.7 mg/dl (0.2-1.0) 11/09/23 00:20 Direct Bilirubin 0.1 mg/dl (0-0.2) 11/09/23 00:20 AST 24 U/L (13-39) 11/09/23 00:20 ALT 8 U/L (7-52) 11/09/23 00:20 Alkaline Phosphatase 86 U/L (34-104) 11/09/23 00:20 Total Creatine Kinase 13 U/L (26-192) L 11/09/23 00:20 Troponin I High Sens 27.8 pg/ml (0-14) H 11/09/23 07:49 Total Protein 6.5 gm/dl (6.0-8.3) 11/09/23 00:20 Albumin 3.1 gm/dl (3.4-5.0) L 11/09/23 00:20 Procalcitonin 2.18 ng/ml (0-0.5) H 11/09/23 00:20 HCG, Qual Negative (Negative) 11/09/23 00:20 Adenovirus (PCR) Not Detected (NotDetected) 11/08/23 22:54 B. pertussis DNA (PCR) Not Detected (NotDetected) 11/08/23 22:54 B.parapertussis DNA PCR Not Detected (NotDetected) 11/08/23 22:54 C. pneumoniae DNA (PCR) Not Detected (NotDetected) 11/08/23 22:54 Coronavirus OC43 (PCR) Not Detected (NotDetected) 11/08/23 22:54 Coronavirus HKU1 (PCR) Not Detected (NotDetected) 11/08/23 22:54 Coronavirus 229E (PCR) Not Detected (NotDetected) 11/08/23 22:54 SARS-CoV-2 (PCR) Not Detected (NotDetected) 11/08/23 22:54 Coronavirus NL63 (PCR) Not Detected (NotDetected) 11/08/23 22:54 Human Metapneumovir PCR Not Detected (NotDetected) 11/08/23 22:54 Influenza Type A (PCR) Not Detected (NotDetected) 11/08/23 22:54 Influenza Type B (PCR) Not Detected (NotDetected) 11/08/23 22:54 M. pneumoniae (PCR) Not Detected (NotDetected) 04/25/24 22:54 Parainfluenza 1 (PCR) Not Detected (NotDetected) 11/08/23 22:54 Parainfluenza 2 (PCR) Not Detected (NotDetected) 11/08/23 22:54 Parainfluenza 3 (PCR) Not Detected (NotDetected) 11/08/23 22:54 Parainfluenza 4 (PCR) Not Detected (NotDetected) 11/08/23 22:54 RSV (PCR) Not Detected (NotDetected) 11/08/23 22:54 Entero/Rhino (PCR) Not Detected (NotDetected) 11/08/23 22:54 Impressions Venous Doppler Study 11/08/23 22:52 Exam(s): US VENOUS RIGHT UPPER EXTREMITY EXAM: US Duplex Right Upper Extremity Veins CLINICAL HISTORY: Reason for exam: ? DVT. TECHNIQUE: Real-time duplex ultrasound scan of the right upper extremity veins integrating B-mode two-dimensional vascular structure, Doppler spectral analysis, color flow Doppler imaging and compression. COMPARISON: None. FINDINGS: Deep veins: Unremarkable. No DVT in the internal jugular, subclavian, axillary, or brachial veins. The veins demonstrate normal color flow, are normally compressible, with normal phasic flow and/or augmentation response. Superficial veins: Unremarkable. No thrombus in the visualized basilic and cephalic veins. Soft tissues: No acute findings. IMPRESSION: No ultrasonographic evidence of deep venous thrombosis involving the right upper extremity. Electronically signed by: Lauren Merrill MD 11/09/23 02:42 AM Chest X-Ray 11/08/23 22:53 XR chest 1V portable HISTORY: Sepsis COMPARISON: None. FINDINGS: There are low lung volumes. No pneumothorax. The cardiac silhouette is borderline enlarged. The left central venous catheter which terminates at the superior cavoatrial junction. Hazy appearance to the left lung base may represent a small pleural effusion or opacity. The right lung is clear. No evidence for pulmonary edema. IMPRESSION: Hazy appearance to left lung base may represent a small layering pleural effusion versus airspace opacity. ACT 112: Negative or not required by law. Electronically signed by: Greg Day M.D. 11/09/2023 7:19 AM ECG Additional Comments: ECG. Sinus tachycardia, 126. No acute changes seen. Code Status & VTE Plan VTE Prophylaxis Plan VTE Prophylaxis will be ordered: Yes (1) Acute deep vein thrombosis (DVT) of right upper extremity Affected thrombotic vein of extremity: unspecified vein of extremity Qualified Code(s): I82.621 - Acute embolism and thrombosis of deep veins of right upper extremity
[2023-11-09] MEDS ORDERED: SODIUM CHLORIDE 0.9% 250 ML IV PRN (09:09)
[2023-11-09] MEDS ORDERED: SODIUM CHLORIDE 0.9% 1,000 ML IV PRN (11:06)
[2023-11-09] MEDS: CHOLECALCIFEROL 25 MCG (1000 UNITS) TAB PO SCH (11:19)
[2023-11-09] MEDS: PANTOprazole 40 MG TAB PO SCH (11:19)
[2023-11-09] MEDS: predniSONE 5 MG TAB PO SCH (11:19)
[2023-11-09] MEDS: METOPROLOL TARTRATE 25 MG TAB PO SCH (11:20)
[2023-11-09] MEDS: FOLIC ACID 1 MG TAB PO SCH (11:20)
[2023-11-09] MEDS: SERTRALINE HCL 50 MG TABLET PO SCH (11:20)
[2023-11-09] MEDS: FERROUS SULFATE 325 MG TAB PO SCH (11:20)
--- NOTE | 2023-11-09 12:44 | Electrocardiogram Report ---
Test Reason : Blood Pressure : / mmHG Vent. Rate : 126 BPM Atrial Rate : 126 BPM P-R Int : 134 ms QRS Dur : 066 ms QT Int : 308 ms P-R-T Axes : 045 041 054 degrees QTc Int : 446 ms Sinus tachycardia Otherwise normal ECG No previous ECGs available Confirmed by Irineo Dial ([id number]) on 11/09/2023 12:44:41 PM Referred By: REFERRED SELF Confirmed By:Irineo Dial
[2023-11-09 12:56] LABS: ANTI-Xa, UFH(UnfractionatedHep 0.52 IU/ml (0.3-0.7)
[2023-11-09] MEDS: ACETAMINOPHEN 1,000 MG/100 ML VIAL IV PRN (13:44)
--- NOTE | 2023-11-09 14:59 | Nephrology Consultation ---
Date of Consultation November 09, 2023 Assessment & Plan (1) ABIODUN (acute kidney injury): Even though rise of the creatinine seems like acute kidney injury there is a high possibility she will not have renal recovery and likely will be dialysis dependent. from [id number] even though creatinine was not significantly worse the renal biopsy finding from 2017 in 2023 are very different. she has been getting dialysis on Sunday schedule. We will do dialysis later today for 3 hour 30 minutes and give blood transfusion during dialysis. based on nephrology note from [facility] patient is only getting prednisone and Plaquenil and will be continued. currently does not appear to be volume overloaded. We will take about 2 kilos off with dialysis today. No heparin will be used extra with dialysis. (2) Lupus nephritis: longstanding complicated history of lupus with previously membranous type lupus. But on this recent biopsy in September 2023 she had collapsing glomerulopathy consistent with FSGS. Associated with high-grade proteinuria and now significantly abnormal kidney function. (3) Acute deep vein thrombosis (DVT) of right upper extremity: anti coagulation as per primary team. consider getting input from Hematology also given her extremely complicated hematological history Plan very complicated patient. Extensive chart review was done of multiple consultants including Hematology interventional radiology cardiology History of Present Illness Reason for Consultation: Longstanding lupus nephritis patient recently started on dialysis after acute kidney injury now admitted with DVT Attending Physician: Jef Guerra MD History of Present Illness 33-year-old female with very complicated medical history related with lupus. She had renal biopsy done in 2017 and had another biopsy again last month during her prolonged hospital stay at [facility]. she had membranous lupus and since 2017 significant deterioration but on the more recent biopsy there was no acute immune complex disease. renal function did not get better and she was started on dialysis. She was transferred to [facility] yesterday and from there she was transferred to [facility] yesterday because of significant right upper extremity edema and numbness. She was found to have DVT. Currently on Heparin drip and today is her dialysis day. 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 Patient was initially presented to [facility] with shortness of breath and cough and fever ongoing for a week. Initial workup showed severe ABIODUN. She was treated with IV antibiotics for possible sepsis and subsequently transferred to [facility] for further evaluation. Blood cultures were negative. IgM Lyme antibody was positive and was started on doxycycline. CT PE study was considered for shortness of breath but because of rapidly worsening kidney function CT PE was not done. Her ABIODUN is thought to be possibly from exacerbated lupus nephritis. Renal biopsy findings suggested collapsing glomerulonephritis, form of focal segmental glomera sclerosis. She was treated with pulse dose steroids and started on intermittent hemodialysis due to deteriorating kidney function. Following the biopsy she developed perinephric hematoma and required arterial embolization. She suffered from severe posthemorrhagic anemia needing multiple blood transfusions and experienced a delayed hemolytic transfusion reaction attributed to the JKa antigen. She was also tested positive for CMV viremia. She was treated for suspected CMV colitis and spontaneous bacterial peritonitis with valganciclovir, cefepime and metronidazole.. ID recommended weekly CMV titers for 4 weeks and to be followed by ID outpatient 6 to 8 weeks.Also to be followed by Nephrology, rheumatology and hematology The patient was admitted due to acute kidney injury, likely exacerbated by a lupus nephritis flare. Renal biopsy findings suggested an unexpected diagnosis of collapsing glomerulonephritis. She was treated with pulse dose steroids and started on intermittent hemodialysis due to deteriorating kidney function. Following the biopsy, she developed a perinephric hematoma and required arterial embolization. She suffered from severe posthemorrhagic anemia, necessitating multiple blood transfusions and experienced a delayed hemolytic transfusion reaction attributed to the Jka antigen. Additionally, she tested positive for CMV viremia. She was treated for suspected CMV colitis and spontaneous bacterial peritonitis with valganciclovir, cefepime, and metronidazole. Per Infectious Disease, patient will need weekly CMV titers for 4 weeks, and should be seen by infectious disease outpatient in 6-8 weeks. review of symptoms------- 12 systems reviewed in total. positive for weakness some nausea numbness and swelling of the right upper extremity. Physical Exam Physical Exam: General- Not in acute distress Head- atraumatic Eyes- PERRL. ENT- oropharynx dry Neck- supple, no JVD. Lungs- clear to auscultation no wheezing or crackles Heart- regular rhythm;Tachycardia no murmur, no gallop. Abdomen- normal bowel sounds, soft, nontender, no distension Extremities- Right forearm swollen Neuro- alert, oriented PERRL, no facial palsy; no dysarthria; moves extremities Allergies Allergy/AdvReac Type Severity Reaction Status Date / Time No Known Allergies Allergy Unverified 11/09/23 02:51 Home Medications Medication Instructions Recorded Confirmed Type cholecalciferol (vitamin D3) 25 25 mcg PO DAILY 11/09/23 11/09/23 History mcg (1,000 unit) chewable tablet (Vitamin D3) ferrous sulfate 325 mg (65 mg 325 mg PO DAILY 11/09/23 11/09/23 History iron) tablet (FeroSul) folic acid 1 mg tablet 1 mg PO DAILY 11/09/23 11/09/23 History hydroxychloroquine 200 mg tablet 400 mg PO HS 11/09/23 11/09/23 History (Plaquenil) metoprolol tartrate 25 mg tablet 25 mg PO BID 11/09/23 11/09/23 History omeprazole 20 mg tablet,delayed 20 mg PO DAILY 11/09/23 11/09/23 History release prednisone 5 mg tablet 5 mg PO DAILY 11/09/23 11/09/23 History sertraline 25 mg tablet 25 mg PO DAILY 11/09/23 11/09/23 History Patient History Social History Feels Safe at Home: Yes Results & Data Vital Signs (Past 12 Hours) Vital Signs Temp Pulse Pulse Resp BP Pulse Ox 11/09/23 14:47 37.2 C 122 H 18 111/79 11/09/23 14:30 37.1 C 124 H 121/75 11/09/23 14:30 37.1 C 124 H 18 121/75 11/09/23 14:15 122 H 120/85 11/09/23 14:00 124 H 126/80 11/09/23 13:45 128 H 128/85 11/09/23 13:30 125 H 133/79 11/09/23 13:16 125 H 127/84 11/09/23 13:07 37.9 C H 127 H 11/09/23 11:00 126/93 11/09/23 11:00 130 H 15 100 11/09/23 10:06 126 H 24 100 11/09/23 09:00 127/84 11/09/23 09:00 127 H 13 99 11/09/23 08:00 129/90 11/09/23 08:00 126 H 21 100 11/09/23 07:52 131 H 11/09/23 07:00 136/85 11/09/23 07:00 123 H 21 100 11/09/23 06:28 121 H 11/09/23 06:00 121 H 19 99 11/09/23 06:00 134/87 11/09/23 05:30 124 H 21 99 11/09/23 05:00 128 H 22 123/88 98 11/09/23 04:30 123 H 22 98 11/09/23 04:00 120 H 23 98 11/09/23 03:30 126 H 18 99 11/09/23 03:00 124 H 24 121/85 98 (3) Acute deep vein thrombosis (DVT) of right upper extremity Affected thrombotic vein of extremity: unspecified vein of extremity Qualified Code(s): I82.621 - Acute embolism and thrombosis of deep veins of right upper extremity
--- NOTE | 2023-11-09 16:50 | Hospitalist Progress Note ---
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 Patient was initially presented to [facility] with shortness of breath and cough and fever ongoing for a week. Initial workup showed severe ABIODUN. She was treated with IV antibiotics for possible sepsis and subsequently transferred to [facility] for further evaluation. Blood cultures were negative. IgM Lyme antibody was positive and was started on doxycycline. CT PE study was considered for shortness of breath but because of rapidly worsening kidney function CT PE was not done. Her ABIODUN is thought to be possibly from exacerbated lupus nephritis. Renal biopsy findings suggested collapsing glomerulonephritis, form of focal segmental glomera sclerosis. She was treated with pulse dose steroids and started on intermittent hemodialysis due to deteriorating kidney function. Following the biopsy she developed perinephric hematoma and required arterial embolization. She suffered from severe p osthemorrhagic anemia needing multiple blood transfusions and experienced a delayed hemolytic transfusion reaction attributed to the JKa antigen. She was also tested positive for CMV viremia. She was treated for suspected CMV colitis and spontaneous bacterial peritonitis with valganciclovir, cefepime and metronidazole.. ID recommended weekly CMV titers for 4 weeks and to be followed by ID outpatient 6 to 8 weeks.Also to be followed by Nephrology, rheumatology and hematology Acute DVT involving right upper extremity Right innominate vein that extends into the right internal jugular vein. In addition, there is a focus of deep venous thrombus within the right subclavian vein that extends into the right cephalic vein. 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 attributed to the JKa antigen Close monitoring h and h while on iv heparin Will give 2 units of blood transfusions Hemoglobin has gone up to 9.8 Sinus tachycardia-chronic sinus tachycardia Echocardiography-mild concentric LVH, no regional wall motion abnormality, LV is hyperdynamic, EF more than 70%, grade 1 diastolic dysfunction there is no significant valvular heart disease Could be contributed by cellulitis involving the right upper extremity//phlebitis Elevated procalcitonin Started on Rocephin Appreciate cardiology input and recommendation Remains tachycardic but the rate is decreased to 110 ABIODUN/CKD Collapsing glomerulonephritis, form of focal segmental glomera sclerosis on renal biopsy On hemodialysis Appreciate nephrology input and recommendation SLE Lupus nephritis on Prednisone and Plaquenil Anemia Hb 7.6 today Hb 6.9 and hb 7.1 on 10/29/23 at [place] Close monitor while on iv heparin Will get 2 units of blood transfusion Hemoglobin is up to 9.8 DVT px on iv heparin Disposition Tele Full code per discussion with patient. Clinically better Will initiate PT and OT evaluation Admission and Anticipated Discharge Date Admission Date: November 09, 2023 Subjective 11/09/2023 The patient was seen and examined in emergency room She has been admitted early this morning Complains of some pain in the left upper extremity Has shortness of breath with minimal exertion Denies any abdominal pain, nausea or vomiting 11/10/2023 The patient was seen and examined in telemetry unit She has been feeling a little better today Feels generally weak and lethargic Right upper extremity pain and swelling are better Feels nauseous and vomiting Review of Systems Review of Systems: All systems reviewed and are unremarkable except as noted below Physical Exam Physical Exam: Lying in bed with minimal distress Constitutional: + ill appearing and average body habitus Eyes: PERRL, conjunctivae normal, anicteric sclerae ENMT: external ear and nose normal, oropharynx normal Neck: trachea midline, no thyromegaly Respiratory: no respiratory distress Auscultation: lungs clear to auscultation bilaterally Cardiovascular: Rate/Rhythm: regular rate, regular rhythm and + tachycardic Heart Sounds: normal S1 and normal S2; no murmur Extremities: + edema (Trace edema bilaterally) Gastrointestinal (Abdomen): Inspection/Auscultation: normal bowel sounds; abdomen not distended Percussion/Palpation: abdomen soft; abdomen nontender Musculoskeletal: Right upper extremity is swollen. Movement is minimally painful Neurologic: normal touch/pain/proprioception and moves all extremities; no focal motor deficits Psychiatric: A+Ox3, euthymic affect Lymphatic: no cervical or axillary lymphadenopathy Results & Data Results & Data Vital Signs (Past 12 Hours) Vital Signs Temp Pulse Pulse Resp BP Pulse Ox 11/09/23 15:30 118 H 125/88 11/09/23 15:15 37.1 C 114 H 20 127/84 11/09/23 15:02 37.2 C 114 H 18 125/90 11/09/23 15:00 114 H 125/90 11/09/23 14:47 37.2 C 122 H 18 111/79 11/09/23 14:30 37.1 C 124 H 121/75 11/09/23 14:30 37.1 C 124 H 18 121/75 11/09/23 14:15 122 H 120/85 11/09/23 14:00 124 H 126/80 11/09/23 13:45 128 H 128/85 11/09/23 13:30 125 H 133/79 11/09/23 13:16 125 H 127/84 11/09/23 13:07 37.9 C H 127 H 11/09/23 11:00 126/93 11/09/23 11:00 130 H 15 100 11/09/23 10:06 126 H 24 100 11/09/23 09:00 127/84 11/09/23 09:00 127 H 13 99 11/09/23 08:00 129/90 11/09/23 08:00 126 H 21 100 11/09/23 07:52 131 H 11/09/23 07:00 136/85 11/09/23 07:00 123 H 21 100 11/09/23 06:28 121 H 11/09/23 06:00 121 H 19 99 11/09/23 06:00 134/87 11/09/23 05:30 124 H 21 99 11/09/23 05:00 128 H 22 123/88 98 Laboratory Results Short CBC 11/09/23 11/09/23 Range/Units 00:20 07:14 WBC 1.60 L 1.36 L (4.8-10.8) K/ul Hgb 7.6 L 6.5 L* (12.0-16.0) g/dl Hct 24.5 L 20.6 L* (37.0-47.0) % Plt Count 131 136 (130-400) K/uL BMP 11/09/23 11/09/23 00:20 07:49 Sodium 138 138 Potassium 4.4 4.7 Chloride 99 100 Carbon Dioxide 21 23 BUN 37 H 42 H Creatinine 5.24 H* 5.47 H* Glucose 73 91 Calcium 8.8 8.4 L Cardiac Enzymes 11/09/23 Range/Units 00:20 Total Creatine Kinase 13 L (26-192) U/L Liver Function 11/09/23 Range/Units 00:20 Total Bilirubin 0.7 (0.2-1.0) mg/dl Direct Bilirubin 0.1 (0-0.2) mg/dl AST 24 (13-39) U/L ALT 8 (7-52) U/L Alkaline Phosphatase 86 (34-104) U/L Albumin 3.1 L (3.4-5.0) gm/dl Medications Administered Current Inpatient Medications Acetaminophen (Acetaminophen 325 Mg Tab) 650 mg PO Q4H PRN PRN Reason: Pain or Fever Stop: 12/09/23 07:40 Ferrous Sulfate (Ferrous Sulfate 325 Mg Tab) 325 mg PO DAILY KIKA Stop: 12/09/23 08:59 Last Admin: 11/09/23 11:20 Dose: 325 mg Folic Acid (Folic Acid 1 Mg Tab) 1 mg PO DAILY KIKA Stop: 12/09/23 08:59 Last Admin: 11/09/23 11:20 Dose: 1 mg Hydroxychloroquine Sulfate (Hydroxychloroquine Sulfate 200 Mg Tab) 400 mg PO HS KIKA Stop: 12/09/23 20:59 Heparin Sodium/Dextrose (Heparin Sodium/Dextrose) 25,000 units in 500 mls @ 14 mls/hr IV .Q24H KIKA; Protocol Stop: 12/09/23 03:59 Last Titration: 11/09/23 13:43 Dose: 700 units/hr, 14 mls/hr Sodium Chloride (Nss) 250 mls @ 15 mls/hr IV .[id number] PRN PRN Reason: For Transfusion Duration Stop: 11/09/23 19:10 Ceftriaxone Sodium 2,000 mg/ (Dextrose) 50 mls @ 100 mls/hr IV Q24H KIKA; Protocol Stop: 11/17/23 03:59 Sodium Chloride (Nss) 1,000 mls @ 0 mls/hr IV .Q0M PRN PRN Reason: For Hemodialysis Use ONLY Stop: 11/09/23 17:05 Acetaminophen (Ofirmev) 1,000 mg in 100 mls @ 400 mls/hr IV Q8H PRN; Protocol PRN Reason: Pain Stop: 11/12/23 12:54 Last Infusion: 11/09/23 15:06 Dose: Infused Metoprolol Tartrate (Metoprolol Tartrate 25 Mg Tab) 25 mg PO BID KIKA Stop: 12/09/23 08:59 Last Admin: 11/09/23 11:20 Dose: 25 mg Nitroglycerin (Nitroglycerin Sl 0.4 Mg/Tab Tab) 0.4 mg SL Q5M PRN PRN Reason: Chest Pain Stop: 12/09/23 07:40 Pantoprazole Sodium (Pantoprazole 40 Mg Tab) 40 mg PO DAILY KIKA Stop: 12/09/23 08:59 Last Admin: 11/09/23 11:19 Dose: 40 mg Polyethylene Glycol (Polyethylene (Miralax) 17 Gm Pack) 17 gm PO DAILY PRN PRN Reason: Constipation Stop: 12/09/23 07:40 Prednisone (Prednisone 5 Mg Tab) 5 mg PO DAILY KIKA Stop: 12/09/23 08:59 Last Admin: 11/09/23 11:19 Dose: 5 mg Sertraline HCl (Sertraline Hcl 50 Mg Tablet) 25 mg PO DAILY KIKA Stop: 12/09/23 08:59 Last Admin: 11/09/23 11:20 Dose: 25 mg Vitamin D (Cholecalciferol 25 Mcg (1000 Units) Tab) 25 mcg PO DAILY KIKA Stop: 12/09/23 08:59 Last Admin: 11/09/23 11:19 Dose: 25 mcg (1) Acute deep vein thrombosis (DVT) of right upper extremity Affected thrombotic vein of extremity: unspecified vein of extremity Qualified Code(s): I82.621 - Acute embolism and thrombosis of deep veins of right upper extremity
[2023-11-09 18:44] LABS: Hematocrit (blood only) 28.1 % (37.0-47.0); Hemoglobin 9.3 g/dl (12.0-16.0)
[2023-11-09] MEDS: HYDROXYCHLOROQUINE SULFATE 200 MG TAB PO SCH (19:42)
[2023-11-09] MEDS: ONDANSETRON INJ 2 MG/ML 2 ML VIAL IV PRN (19:57)
[2023-11-09] MEDS: traMADol HCL 50 MG TABLET PO PRN (19:59)
[2023-11-10] MEDS: cefTRIAXone SODIUM 2,000 MG in DEXTROSE 5 % MINI-B 50 ML IV SCH (04:35)
[2023-11-10 06:19] LABS: Reticulocyte % 1.77 % (0.50-2.00); Reticulocytes # 0.06 10^6/uL (0.020-0.100)
[2023-11-10 06:43] LABS: BUN Creatinine Ratio 6.2 (10-20); Calcium 8.6 mg/dl (8.6-10.3); Creatinine Clr Calc Pharmacy 20.3 ml/min; Est GFR (African American) 20.8 ml/min; Magnesium 1.7 mg/dl (1.7-2.4); Phosphorus 4.6 mg/dl (2.5-4.9); Potassium 3.6 mmol/L (3.5-5.1)
[2023-11-10 06:49] LABS: ANTI-Xa, UFH(UnfractionatedHep 0.62 IU/ml (0.3-0.7)
[2023-11-10 07:18] LABS: Hematocrit (blood only) 29.8 % (37.0-47.0); Hemoglobin 9.8 g/dl (12.0-16.0)
[2023-11-10] MEDS: HYDROmorphone INJ 0.5 MG/0.5 ML SYR IV PRN (10:36)
--- NOTE | 2023-11-10 10:36 | Nephrology Progress Note ---
Date of Service November 10, 2023 Assessment & Plan (1) ABIODUN (acute kidney injury): Plan: Even though rise of the creatinine seems like acute kidney injury there is a high possibility she will not have renal recovery and likely will be dialysis dependent. from [id number] even though creatinine was not significantly worse the renal biopsy finding from 2017 in 2023 are very different. she has been getting dialysis on Sunday schedule. She had dialysis on Sunday. Electrolytes are stable and no signs of volume overload. No indication for dialysis today. She will be Sunday. prednisone and Plaquenil and will be continued. (2) Lupus nephritis: Plan: longstanding complicated history of lupus with previously membranous type lupus. But on this recent biopsy in September 2023 she had collapsing glomerulopathy consistent with FSGS. Associated with high-grade proteinuria and now significantly abnormal kidney function. (3) Acute deep vein thrombosis (DVT) of right upper extremity: Plan: Patient is on heparin drip. She likely needs to be transitioned to Coumadin. Consider getting input from Hematology also given her extremely complicated hematological history Admission and Anticipated Discharge Date Admission Date: November 09, 2023 Subjective Seen for acute renal failure due to lupus nephritis now requiring dialysis. Last HD was Sunday. Main complaint today is weakness. She also has nausea and vomiting. She has exertional dyspnea. Review of Systems 2 Review of Systems: All other systems were reviewed and negative except as noted in HPI Physical Exam 2 Physical Exam: General exam: Appears comfortable, no acute distress HEENT: Pupils are equal and reactive to light Neck: No JVD, neck is supple trachea is midline Respiratory system: Clear breath sounds bilaterally. Gastrointestinal: Abdomen is soft, non distended, non tender, bowel sounds are present CVS: Regular rate and rhythm. No murmurs, rubs or gallops Musculoskeletal: No joint or muscle tenderness Extremities: right arm swollen Neuro: Oriented, no tremors, no focal neurological deficits Skin: diffuse lichenification Results & Data Vital Signs (Past 12 Hours) Vital Signs Temp Pulse Pulse Resp BP BP Pulse Ox 11/10/23 10:04 109 H 11/10/23 07:54 36.6 C 109 H 18 130/87 96 11/10/23 02:04 36.9 C 106 H 18 120/84 98 11/10/23 01:20 36.8 C 105 H 18 124/86 98 11/10/23 00:20 36.9 C 106 H 18 111/78 97 11/09/23 23:50 37 C 110 H 18 111/74 97 11/09/23 23:35 36.8 C 109 H 18 105/73 98 11/09/23 23:15 37 C 109 H 18 108/74 97 11/09/23 23:00 111 H O2 Del Method 11/10/23 10:04 11/10/23 07:54 Room Air 11/10/23 02:04 11/10/23 01:20 11/10/23 00:20 11/09/23 23:50 11/09/23 23:35 11/09/23 23:15 11/09/23 23:00 Laboratory Results 11/10/23 05:33 11/10/23 05:33 Phosphorus 4.6 (3) Acute deep vein thrombosis (DVT) of right upper extremity Affected thrombotic vein of extremity: unspecified vein of extremity Qualified Code(s): I82.621 - Acute embolism and thrombosis of deep veins of right upper extremity
--- NOTE | 2023-11-10 11:59 | Electrocardiogram Report ---
Test Reason : Blood Pressure : / mmHG Vent. Rate : 112 BPM Atrial Rate : 112 BPM P-R Int : 140 ms QRS Dur : 078 ms QT Int : 342 ms P-R-T Axes : 048 054 004 degrees QTc Int : 466 ms Sinus tachycardia Nonspecific T wave abnormality Abnormal ECG When compared with ECG of 08-NOV-2023 22:54, Inverted T waves have replaced nonspecific T wave abnormality in Inferior leads Confirmed by Irineo Dial ([id number]) on 11/10/2023 11:58:47 AM Referred By: REFERRED SELF Confirmed By:Irineo Dial
[2023-11-10 12:08] LABS: HBSAG NON-REACTIVE (NON-REACTIVE); Hepatitis B Surface Ab, Quant 8 mIU/mL (> OR = 10)
[2023-11-10] MEDS: PROMETHAZINE HCL 12.5 MG in SODIUM CHLORIDE 0.9% 50 ML IV PRN (13:06)
[2023-11-11] MEDS: HYDROmorphone INJ 0.5 MG/0.5 ML SYR IV STA (07:05)
[2023-11-11 07:20] LABS: Calcium 8.6 mg/dl (8.6-10.3); Magnesium 1.7 mg/dl (1.7-2.4); Potassium 3.5 mmol/L (3.5-5.1)
--- NOTE | 2023-11-11 07:38 | Ultrasound Report ---
LEFT UPPER EXTREMITY VENOUS DOPPLER HISTORY: Left arm pain and swelling. dvt? COMPARISON STUDY: None. FINDINGS: The patient's overlying intravenous lines and bandages results in difficult evaluation. The technologist was unable to assess the left inferior internal jugular vein, innominate vein, proximal to mid subclavian vein, and proximal radial and ulnar veins. Otherwise, the visualized left internal jugular vein is patent. There is normal flow within the distal left subclavian vein. There is normal flow and compressibility within the visualized left axillary, basilic, brachial, radial, and ulnar v eins. Superficial thrombus identified within the left cephalic vein at the antecubital fossa. IMPRESSION: 1. No definite DVT within the left upper extremity with limitations as described above. 2. Superficial thrombus identified within the left cephalic vein at the antecubital fossa. ACT 112: Negative or not required by law. Electronically signed by: Greg Day M.D. 11/11/2023 7:35 AM
[2023-11-11 07:53] LABS: ANTI-Xa, UFH(UnfractionatedHep 0.25 IU/ml (0.3-0.7)
[2023-11-11 07:55] LABS: BUN Creatinine Ratio 6.1 (10-20); Creatinine Clr Calc Pharmacy 13.4 ml/min; Est GFR (African American) 12.6 ml/min; Est GFR (Non-African American) 10.9 ml/min
[2023-11-11 08:03] LABS: Hematocrit (blood only) 30.4 % (37.0-47.0); Hemoglobin 9.9 g/dl (12.0-16.0); Mean Corpuscular Hemoglobin 28.4 pg (25.0-34.0); Mean Corpuscular Hgb Conc 32.6 g/dL (32.0-36.0); Mean Corpuscular Volume 87.4 fL (80.0-100.0); Mean Platelet Volume 10.6 fL (9.4-12.4); Platelet Count 94 K/uL (130-400); RDW Coefficient of Variation 17.2 % (11.5-14.5); RDW Standard Deviation 53.2 fL (36.4-46.3); Red Blood Count 3.48 M/uL (4.20-5.40)
[2023-11-11 08:10] LABS: Basophils # (auto) 0.04 K/uL (0.00-0.20); Basophils % (auto) 1.3 %; Eosinophils # (auto) 0.05 K/uL (0.00-0.50); Eosinophils % (auto) 1.6 %; Immature Granulocytes # (auto) 0.14 K/uL (0.01-0.20); Immature Granulocytes % (auto) 4.4 %; Lymphocytes # (auto) 1.41 K/uL (1.20-3.40); Lymphocytes % (auto) 44.1 %; Monocytes # (auto) 0.41 K/uL (0.11-0.59); Monocytes % (auto) 12.8 %; Neutrophils # (auto) 1.15 K/uL (1.40-6.50); Neutrophils % (auto) 35.8 %; Platelet Estimate Decreased (Normal); Toxic Granulation 1+; Toxic Vacuolation 1+
[2023-11-11] MEDS: DICLOFENAC SOD 1% GEL 100 GM TUBE EXT SCH (09:32)
--- NOTE | 2023-11-11 10:04 | Nephrology Progress Note ---
Date of Service November 11, 2023 Assessment & Plan (1) ABIODUN (acute kidney injury): Plan: Even though rise of the creatinine seems like acute kidney injury there is a high possibility she will not have renal recovery and likely will be dialysis dependent. from [id number] even though creatinine was not significantly worse the renal biopsy finding from 2017 in 2023 are very different. she has been getting dialysis on Sunday schedule. She had dialysis on Sunday. Electrolytes are stable and no signs of volume overload. No indication for dialysis today. She will be dialyzed on Sunday. prednisone and Plaquenil and will be continued. (2) Lupus nephritis: Plan: longstanding complicated history of lupus with previously membranous type lupus. But on this recent biopsy in September 2023 she had collapsing glomerulopathy consistent with FSGS. Associated with high-grade proteinuria and now significantly abnormal kidney function. (3) Acute deep vein thrombosis (DVT) of right upper extremity: Plan: Patient is on heparin drip. She likely needs to be transitioned to Coumadin. Consider getting input from Hematology also given her extremely complicated hematological history Admission and Anticipated Discharge Date Admission Date: November 09, 2023 Subjective Seen for acute renal failure requiring dialysis. Main complaint is nausea. No shortness of breath. Review of Systems 2 Review of Systems: All other systems were reviewed and negative except as noted in HPI Physical Exam 2 Physical Exam: General exam: Appears comfortable, no acute distress HEENT: Pupils are equal and reactive to light Neck: No JVD, neck is supple trachea is midline Respiratory system: Clear breath sounds bilaterally. Gastrointestinal: Abdomen is soft, non distended, non tender, bowel sounds are present CVS: Regular rate and rhythm. No murmurs, rubs or gallops Musculoskeletal: No joint or muscle tenderness Extremities: right arm swollen Neuro: Oriented, no tremors, no focal neurological deficits Skin: diffuse lichenification Results & Data Vital Signs (Past 12 Hours) Vital Signs Temp Pulse Pulse Resp BP BP Pulse Ox 11/11/23 07:40 36.7 C 115 H 18 156/91 H 156/91 H 96 11/11/23 07:17 112 H 11/11/23 03:16 36.8 C 113 H 18 115/82 98 11/11/23 00:00 121 H 11/10/23 23:05 36.5 C 109 H 18 123/84 96 O2 Del Method 11/11/23 07:40 Room Air 11/11/23 07:17 11/11/23 03:16 Room Air 11/11/23 00:00 11/10/23 23:05 Room Air Laboratory Results 11/11/23 06:29 11/11/23 06:29 WBC 3.20 L RBC 3.48 L MCV 87.4 MCH 28.4 MCHC 32.6 RDW Std Deviation 53.2 H RDW Coeff of Evelio 17.2 H Plt Count 94 L MPV 10.6 (3) Acute deep vein thrombosis (DVT) of right upper extremity Affected thrombotic vein of extremity: unspecified vein of extremity Qualified Code(s): I82.621 - Acute embolism and thrombosis of deep veins of right upper extremity
--- NOTE | 2023-11-11 10:25 | Hospitalist Progress Note ---
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 Patient was initially presented to [facility] with shortness of breath and cough and fever ongoing for a week. Initial workup showed severe ABIODUN. She was treated with IV antibiotics for possible sepsis and subsequently transferred to [facility] for further evaluation. Blood cultures were negative. IgM Lyme antibody was positive and was started on doxycycline. CT PE study was considered for shortness of breath but because of rapidly worsening kidney function CT PE was not done. Her ABIODUN is thought to be possibly from exacerbated lupus nephritis. Renal biopsy findings suggested collapsing glomerulonephritis, form of focal segmental glomera sclerosis. She was treated with pulse dose steroids and started on intermittent hemodialysis due to deteriorating kidney function. Following the biopsy she developed perinephric hematoma and required arterial embolization. She suffered from severe p osthemorrhagic anemia needing multiple blood transfusions and experienced a delayed hemolytic transfusion reaction attributed to the JKa antigen. She was also tested positive for CMV viremia. She was treated for suspected CMV colitis and spontaneous bacterial peritonitis with valganciclovir, cefepime and metronidazole.. ID recommended weekly CMV titers for 4 weeks and to be followed by ID outpatient 6 to 8 weeks.Also to be followed by Nephrology, rheumatology and hematology Acute DVT involving right upper extremity Right innominate vein that extends into the right internal jugular vein. In addition, there is a focus of deep venous thrombus within the right subclavian vein that extends into the right cephalic vein. Started on IV heparin Elevate the hand Pain control with IV Tylenol Will discuss with the card puncher for this choice of oral anticoagulation No card puncher in [place] could be found so we will talk to Dr. 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 delayed hemolytic transfusion reaction attributed to the JKa antigen Close monitoring h and h while on iv heparin Will give 2 units of blood transfusions Hemoglobin has gone up to 9.8 Sinus tachycardia-chronic sinus tachycardia Echocardiography-mild concentric LVH, no regional wall motion abnormality, LV is hyperdynamic, EF more than 70%, grade 1 diastolic dysfunction there is no significant valvular heart disease Could be contributed by cellulitis involving the right upper extremity//phlebitis Elevated procalcitonin Started on Rocephin Appreciate cardiology input and recommendation Remains tachycardic but the rate is decreased to 110 Heart rate remains elevated at 115 ABIODUN/CKD Collapsing glomerulonephritis, form of focal segmental glomera sclerosis on renal biopsy On hemodialysis Appreciate nephrology input and recommendation SLE Lupus nephritis on Prednisone and Plaquenil Anemia Hb 7.6 today Hb 6.9 and hb 7.1 on 10/29/23 at [facility] Close monitor while on iv heparin Will get 2 units of blood transfusion Hemoglobin is up to 9.8 DVT px on iv heparin Disposition Tele Full code per discussion with patient. Clinically better Will initiate PT and OT evaluation Admission and Anticipated Discharge Date Admission Date: November 09, 2023 Subjective 11/09/2023 The patient was seen and examined in emergency room She has been admitted early this morning Complains of some pain in the left upper extremity Has shortness of breath with minimal exertion Denies any abdominal pain, nausea or vomiting 11/10/2023 The patient was seen and examined in telemetry unit She has been feeling a little better today Feels generally weak and lethargic Right upper extremity pain and swelling are better Feels nauseous and vomiting 11/11/2023 The patient was seen and examined in telemetry unit She has been feeling much better but complains to pain in the left upper extremity Ultrasound did show superficial phlebitis-Voltaren has been applied Will get PT OT evaluation and possible discharge in a day or 2 Review of Systems Review of Systems: All systems reviewed and are unremarkable except as noted below Physical Exam Physical Exam: Lying in bed with minimal distress Constitutional: + ill appearing and average body habitus Eyes: PERRL, conjunctivae normal, anicteric sclerae ENMT: external ear and nose normal, oropharynx normal Neck: trachea midline, no thyromegaly Respiratory: no respiratory distress Auscultation: lungs clear to auscultation bilaterally Cardiovascular: Rate/Rhythm: regular rate, regular rhythm and + tachycardic Heart Sounds: normal S1 and normal S2; no murmur Extremities: + edema (Trace edema bilaterally) Gastrointestinal (Abdomen): Inspection/Auscultation: normal bowel sounds; abdomen not distended Percussion/Palpation: abdomen soft; abdomen nontender Musculoskeletal: No acute arthritis involving any of the joints Neurologic: normal touch/pain/proprioception and moves all extremities; no focal motor deficits Psychiatric: A+Ox3, euthymic affect Lymphatic: no cervical or axillary lymphadenopathy Results & Data Results & Data Vital Signs (Past 12 Hours) Vital Signs Temp Pulse Pulse Resp BP BP Pulse Ox 11/11/23 07:40 36.7 C 115 H 18 156/91 H 156/91 H 96 11/11/23 07:17 112 H 11/11/23 03:16 36.8 C 113 H 18 115/82 98 11/11/23 00:00 121 H 11/10/23 23:05 36.5 C 109 H 18 123/84 96 O2 Del Method 11/11/23 07:40 Room Air 11/11/23 07:17 11/11/23 03:16 Room Air 11/11/23 00:00 11/10/23 23:05 Room Air Laboratory Results Short CBC 11/11/23 Range/Units 06:29 WBC 3.20 L (4.8-10.8) K/ul Hgb 9.9 L (12.0-16.0) g/dl Hct 30.4 L (37.0-47.0) % Plt Count 94 L (130-400) K/uL BMP 11/11/23 06:29 Sodium 138 Potassium 3.5 Chloride 101 Carbon Dioxide 25 BUN 30 H Creatinine 4.88 H* D Glucose 73 Calcium 8.6 Medications Administered Current Inpatient Medications Acetaminophen (Acetaminophen 325 Mg Tab) 650 mg PO Q4H PRN PRN Reason: Pain or Fever Stop: 12/09/23 07:40 Diclofenac Sodium (Diclofenac Sod 1% Gel 100 Gm Tube) 1 gm EXT BID [facility]; Protocol Stop: 12/11/23 08:59 Last Admin: 11/11/23 09:32 Dose: 1 gm Epoetin [place] (Epoetin Ralph 4,000 Unit/Ml Vial) 4,000 units IV ONE ONE Stop: 11/12/23 07:01 Ferrous Sulfate (Ferrous Sulfate 325 Mg Tab) 325 mg PO DAILY [facility] Stop: 12/09/23 08:59 Last Admin: 11/11/23 09:32 Dose: 325 mg Folic Acid (Folic Acid 1 Mg Tab) 1 mg PO DAILY [facility] Stop: 12/09/23 08:59 Last Admin: 11/11/23 09:32 Dose: 1 mg Hydromorphone HCl (Hydromorphone Inj 0.5 Mg/0.5 Ml Syr) 0.25 mg IV Q6H PRN PRN Reason: Pain Stop: 11/24/23 10:22 Last Admin: 11/11/23 03:42 Dose: 0.25 mg Hydroxychloroquine Sulfate (Hydroxychloroquine Sulfate 200 Mg Tab) 400 mg PO HS [facility] Stop: 12/09/23 20:59 Last Admin: 11/10/23 21:45 Dose: 400 mg Heparin Sodium/Dextrose (Heparin Sodium/Dextrose) 25,000 units in 500 mls @ 15 mls/hr IV .Q24H [facility]; Protocol Stop: 12/09/23 03:59 Last Titration: 11/11/23 07:57 Dose: 750 units/hr, 15 mls/hr Ceftriaxone Sodium 2,000 mg/ (Dextrose) 50 mls @ 100 mls/hr IV Q24H [facility]; Protocol Stop: 11/17/23 03:59 Last Infusion: 11/11/23 03:55 Dose: Infused Acetaminophen (Ofirmev) 1,000 mg in 100 mls @ 400 mls/hr IV Q8H PRN; Protocol PRN Reason: Pain Stop: 11/12/23 12:54 Last Infusion: 11/09/23 20:09 Dose: Infused Promethazine HCl 12.5 mg/ (Sodium Chloride) 50.5 mls @ 202 mls/hr IV Q6H PRN PRN Reason: Nausea And Vomiting Stop: 12/10/23 08:51 Last Infusion: 11/10/23 13:26 Dose: Infused Sodium Chloride (Nss) 1,000 mls @ 0 mls/hr IV .Q0M PRN PRN Reason: For Hemodialysis Use ONLY Stop: 11/12/23 12:59 Metoprolol Tartrate (Metoprolol Tartrate 25 Mg Tab) 25 mg PO BID [facility] Stop: 12/09/23 08:59 Last Admin: 11/11/23 09:21 Dose: 25 mg Nitroglycerin (Nitroglycerin Sl 0.4 Mg/Tab Tab) 0.4 mg SL Q5M PRN PRN Reason: Chest Pain Stop: 12/09/23 07:40 Ondansetron HCl (Ondansetron Inj 2 Mg/Ml 2 Ml Vial) 4 mg IV Q6H PRN PRN Reason: Nausea And Vomiting Stop: 12/09/23 19:50 Last Admin: 11/11/23 09:28 Dose: 4 mg Pantoprazole Sodium (Pantoprazole 40 Mg Tab) 40 mg PO DAILY [facility] Stop: 12/09/23 08:59 Last Admin: 11/11/23 09:32 Dose: 40 mg Polyethylene Glycol (Polyethylene (Miralax) 17 Gm Pack) 17 gm PO DAILY PRN PRN Reason: Constipation Stop: 12/09/23 07:40 Prednisone (Prednisone 5 Mg Tab) 5 mg PO DAILY [facility] Stop: 12/09/23 08:59 Last Admin: 11/11/23 09:21 Dose: 5 mg Sertraline HCl (Sertraline Hcl 50 Mg Tablet) 25 mg PO DAILY [facility] Stop: 12/09/23 08:59 Last Admin: 11/11/23 09:24 Dose: 25 mg Tramadol HCl (Tramadol Hcl 50 Mg Tablet) 50 mg PO Q6H PRN PRN Reason: Mod-Sev Pain (Scale 4-10) Stop: 12/09/23 19:44 Last Admin: 11/11/23 06:06 Dose: 50 mg Vitamin D (Cholecalciferol 25 Mcg (1000 Units) Tab) 25 mcg PO DAILY [facility] Stop: 12/09/23 08:59 Last Admin: 11/11/23 09:32 Dose: 25 mcg (1) Acute deep vein thrombosis (DVT) of right upper extremity Affected thrombotic vein of extremity: unspecified vein of extremity Qualified Code(s): I82.621 - Acute embolism and thrombosis of deep veins of right upper extremity
--- NOTE | 2023-11-11 10:51 | Electrocardiogram Report ---
Test Reason : Blood Pressure : / mmHG Vent. Rate : 114 BPM Atrial Rate : 114 BPM P-R Int : 132 ms QRS Dur : 078 ms QT Int : 304 ms P-R-T Axes : 042 060 010 degrees QTc Int : 419 ms Sinus tachycardia Nonspecific T wave abnormality Abnormal ECG When compared with ECG of 10-NOV-2023 04:37, No significant change was found Confirmed by Irineo Dial ([id number]) on 11/11/2023 10:51:20 AM Referred By: REFERRED SELF Confirmed By:Irineo Dial
[2023-11-11] MEDS: WARFARIN SOD 5 MG TAB PO SCH (18:15)
[2023-11-11] MEDS: METOPROLOL TARTRATE 50 MG TAB PO SCH (21:19)
[2023-11-12] MEDS ORDERED: SODIUM CHLORIDE 0.9% 1,000 ML IV PRN (07:00)
[2023-11-12 07:39] LABS: ANTI-Xa, UFH(UnfractionatedHep 0.22 IU/ml (0.3-0.7)
[2023-11-12 07:41] LABS: BUN Creatinine Ratio 6.5 (10-20); Calcium 8.7 mg/dl (8.6-10.3); Creatinine Clr Calc Pharmacy 10.8 ml/min; Est GFR (African American) 9.8 ml/min; Est GFR (Non-African American) 8.5 ml/min; Magnesium 1.6 mg/dl (1.7-2.4); Potassium 3.5 mmol/L (3.5-5.1)
[2023-11-12 07:47] LABS: Hematocrit (blood only) 29.9 % (37.0-47.0); Hemoglobin 9.6 g/dl (12.0-16.0); Mean Corpuscular Hemoglobin 28.3 pg (25.0-34.0); Mean Corpuscular Hgb Conc 32.1 g/dL (32.0-36.0); Mean Corpuscular Volume 88.2 fL (80.0-100.0); Mean Platelet Volume 11.6 fL (9.4-12.4); Platelet Count 119 K/uL (130-400); RDW Coefficient of Variation 17.2 % (11.5-14.5); RDW Standard Deviation 54.6 fL (36.4-46.3); Red Blood Count 3.39 M/uL (4.20-5.40)
[2023-11-12 08:16] LABS: Basophils # (auto) 0.06 K/uL (0.00-0.20); Basophils % (auto) 1.1 %; Eosinophils % (auto) 1.8 %; Immature Granulocytes # (auto) 0.24 K/uL (0.01-0.20); Immature Granulocytes % (auto) 4.4 %; Lymphocytes # (auto) 1.63 K/uL (1.20-3.40); Lymphocytes % (auto) 29.8 %; Monocytes # (auto) 0.77 K/uL (0.11-0.59); Monocytes % (auto) 14.1 %; Neutrophils # (auto) 2.67 K/uL (1.40-6.50); Neutrophils % (auto) 48.8 %; Toxic Granulation 2+; White Blood Count 5.47 K/ul (4.8-10.8)
[2023-11-12 10:20] LABS: INR 1.3 (0.9-1.1)
--- NOTE | 2023-11-12 11:08 | Dialysis Progress Note ---
Date of Service November 12, 2023 Assessment & Plan Admission and Anticipated Discharge Date Admission Date: November 09, 2023 Subjective Assessment & Plan (1) ABIODUN (acute kidney injury): Plan: Even though rise of the creatinine seems like acute kidney injury there is a high possibility she will not have renal recovery and likely will be dialysis dependent. from [id number] even though creatinine was not significantly worse the renal biopsy finding from 2017 in 2023 are very different. she has been getting dialysis on Sunday schedule. She had dialysis on Sunday. Electrolytes are stable and no signs of volume overload. Doing fine. CVC and BP fine. will raise procrit dose to another [id number] She will be dialyzed on Sun if still here prednisone and Plaquenil and will be continued. (2) Lupus nephritis: Plan: longstanding complicated history of lupus with previously membranous type lupus. But on this recent biopsy in September 2023 she had collapsing glomerulopathy consistent with FSGS. Associated with high-grade proteinuria and now significantly abnormal kidney function. (3) Acute deep vein thrombosis (DVT) of right upper extremity: Plan: Patient is on heparin drip. Now transitioned to Coumadin. hematology was asked over the weekend Subjective Seen During Dialysis. So far feeling fine. For acute renal failure requiring dialysis. Main complaint is nausea. No shortness of breath. Review of Systems Review of Systems: All other systems were reviewed and negative except as noted in HPI Physical Exam Physical Exam: General exam: Appears comfortable, no acute distress HEENT: Pupils are equal and reactive to light Neck: No JVD, neck is supple trachea is midline Respiratory system: Clear breath sounds bilaterally. Gastrointestinal: Abdomen is soft, non distended, non tender, bowel sounds are present CVS: Regular rate and rhythm. No murmurs, rubs or gallops Musculoskeletal: No joint or muscle tenderness Extremities: right arm swollen Neuro: Oriented, no tremors, no focal neurological deficits Skin: diffuse lichenification Results & Data Vital Signs (Past 12 Hours) Vital Signs Temp Pulse Pulse Resp BP Pulse Ox O2 Del Method 11/12/23 09:00 103 H 11/12/23 08:11 114 H 144/100 H 11/12/23 02:43 36.4 C L 105 H 18 154/89 H 97 Room Air
[2023-11-12] MEDS: EPOETIN ALFA 10,000 UNITS/ML VIAL IV ONE (12:28)
[2023-11-12] MEDS: EPOETIN ALFA 4,000 UNIT/ML VIAL IV ONE (12:29)
--- NOTE | 2023-11-12 15:34 | Hospitalist Progress Note ---
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 Patient was initially presented to [facility] with shortness of breath and cough and fever ongoing for a week. Initial workup showed severe ABIODUN. She was treated with IV antibiotics for possible sepsis and subsequently transferred to [facility] for further evaluation. Blood cultures were negative. IgM Lyme antibody was positive and was started on doxycycline. CT PE study was considered for shortness of breath but because of rapidly worsening kidney function CT PE was not done. Her ABIODUN is thought to be possibly from exacerbated lupus nephritis. Renal biopsy findings suggested collapsing glomerulonephritis, form of focal segmental glomera sclerosis. She was treated with pulse dose steroids and started on intermittent hemodialysis due to deteriorating kidney function. Following the biopsy she developed perinephric hematoma and required arterial embolization. She suffered from severe p osthemorrhagic anemia needing multiple blood transfusions and experienced a delayed hemolytic transfusion reaction attributed to the JKa antigen. She was also tested positive for CMV viremia. She was treated for suspected CMV colitis and spontaneous bacterial peritonitis with valganciclovir, cefepime and metronidazole.. ID recommended weekly CMV titers for 4 weeks and to be followed by ID outpatient 6 to 8 weeks.Also to be followed by Nephrology, rheumatology and hematology Acute DVT involving right upper extremity Right innominate vein that extends into the right internal jugular vein. In addition, there is a focus of deep venous thrombus within the right subclavian vein that extends into the right cephalic vein. Started on IV heparin Elevate the hand Pain control with IV Tylenol Will discuss with the retail stock clerk for this choice of oral anticoagulation No retail stock clerk in [place] could be found so we will talk to Dr. 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 delayed hemolytic transfusion reaction attributed to the JKa antigen Close monitoring h and h while on iv heparin Will give 2 units of blood transfusions Hemoglobin has gone up to 9.8-remains stable Sinus tachycardia-chronic sinus tachycardia Echocardiography-mild concentric LVH, no regional wall motion abnormality, LV is hyperdynamic, EF more than 70%, grade 1 diastolic dysfunction there is no significant valvular heart disease Could be contributed by cellulitis involving the right upper extremity//phlebitis Elevated procalcitonin Started on Rocephin Appreciate cardiology input and recommendation Remains tachycardic but the rate is decreased to 110 Heart rate remains elevated at 115 ABIODUN/CKD Collapsing glomerulonephritis, form of focal segmental glomera sclerosis on renal biopsy On hemodialysis Appreciate nephrology input and recommendation Has a dialysis today and dialysis will be as per television production clerk SLE Lupus nephritis on Prednisone and Plaquenil Anemia Hb 7.6 today Hb 6.9 and hb 7.1 on 10/29/23 at [place] Close monitor while on iv heparin Will get 2 units of blood transfusion Hemoglobin is up to 9.8 DVT px on iv heparin Coumadin has been started INR is 1.3 today Disposition Tele Full code per discussion with patient. Clinically better Will initiate PT and OT evaluation Admission and Anticipated Discharge Date Admission Date: November 09, 2023 Subjective 11/09/2023 The patient was seen and examined in emergency room She has been admitted early this morning Complains of some pain in the left upper extremity Has shortness of breath with minimal exertion Denies any abdominal pain, nausea or vomiting 11/10/2023 The patient was seen and examined in telemetry unit She has been feeling a little better today Feels generally weak and lethargic Right upper extremity pain and swelling are better Feels nauseous and vomiting 11/11/2023 The patient was seen and examined in telemetry unit She has been feeling much better but complains to pain in the left upper extremity Ultrasound did show superficial phlebitis-Voltaren has been applied Will get PT OT evaluation and possible discharge in a day or 2 11/12/2023 The patient was seen and examined in telemetry unit She has a dialysis today and has been feeling very tired Pain seems to be reasonably controlled Swelling of the right upper extremity has been improving Review of Systems Review of Systems: All systems reviewed and are unremarkable except as noted below Physical Exam Physical Exam: Lying in bed with minimal distress Constitutional: + ill appearing and average body habitus Eyes: PERRL, conjunctivae normal, anicteric sclerae ENMT: external ear and nose normal, oropharynx normal Neck: trachea midline, no thyromegaly Respiratory: no respiratory distress Auscultation: lungs clear to auscultation bilaterally Cardiovascular: Rate/Rhythm: regular rate, regular rhythm and + tachycardic Heart Sounds: normal S1 and normal S2; no murmur Extremities: + edema (Trace edema bilaterally) Gastrointestinal (Abdomen): Inspection/Auscultation: normal bowel sounds; abdomen not distended Percussion/Palpation: abdomen soft; abdomen nontender Musculoskeletal: No acute arthritis involving any of the joint but does have pain involving the right upper extremity due to extensive DVT Neurologic: normal touch/pain/proprioception and moves all extremities; no focal motor deficits Psychiatric: A+Ox3, euthymic affect Lymphatic: no cervical or axillary lymphadenopathy Results & Data Results & Data Vital Signs (Past 12 Hours) Vital Signs Temp Pulse Pulse Pulse BP BP 11/12/23 12:40 36.5 C 115 H 114/68 11/12/23 12:30 126 H 132/77 11/12/23 12:00 65 109/91 11/12/23 11:30 123 H 144/79 H 11/12/23 11:00 117 H 135/78 11/12/23 10:30 105 H 168/88 H 11/12/23 10:00 106 H 149/91 H 11/12/23 09:35 104 H 163/65 H 11/12/23 09:32 36.4 C L 105 H 11/12/23 09:00 103 H 11/12/23 08:11 114 H 144/100 H Laboratory Results Short CBC 11/12/23 Range/Units 06:15 WBC 5.47 (4.8-10.8) K/ul Hgb 9.6 L (12.0-16.0) g/dl Hct 29.9 L (37.0-47.0) % Plt Count 119 L (130-400) K/uL BMP 11/12/23 06:15 Sodium 136 Potassium 3.5 Chloride 98 Carbon Dioxide 22 BUN 39 H Creatinine 6.01 H* D Glucose 59 L Calcium 8.7 Medications Administered Current Inpatient Medications Acetaminophen (Acetaminophen 325 Mg Tab) 650 mg PO Q4H PRN PRN Reason: Pain or Fever Stop: 12/09/23 07:40 Diclofenac Sodium (Diclofenac Sod 1% Gel 100 Gm Tube) 1 gm EXT BID [facility]; Protocol Stop: 12/11/23 08:59 Last Admin: 11/12/23 07:27 Dose: 1 gm Ferrous Sulfate (Ferrous Sulfate 325 Mg Tab) 325 mg PO DAILY [facility] Stop: 12/09/23 08:59 Last Admin: 11/12/23 07:58 Dose: 325 mg Folic Acid (Folic Acid 1 Mg Tab) 1 mg PO DAILY [facility] Stop: 12/09/23 08:59 Last Admin: 11/12/23 07:58 Dose: 1 mg Hydromorphone HCl (Hydromorphone Inj 0.5 Mg/0.5 Ml Syr) 0.25 mg IV Q6H PRN PRN Reason: Pain Stop: 11/24/23 10:22 Last Admin: 11/12/23 07:23 Dose: 0.25 mg Hydroxychloroquine Sulfate (Hydroxychloroquine Sulfate 200 Mg Tab) 400 mg PO HS [facility] Stop: 12/09/23 20:59 Last Admin: 11/11/23 21:19 Dose: 400 mg Heparin Sodium/Dextrose (Heparin Sodium/Dextrose) 25,000 units in 500 mls @ 16 mls/hr IV .Q24H [facility]; Protocol Stop: 12/09/23 03:59 Last Titration: 11/12/23 10:01 Dose: 800 units/hr, 16 mls/hr Ceftriaxone Sodium 2,000 mg/ (Dextrose) 50 mls @ 100 mls/hr IV Q24H [facility]; Protocol Stop: 11/17/23 03:59 Last Infusion: 11/12/23 04:42 Dose: Infused Promethazine HCl 12.5 mg/ (Sodium Chloride) 50.5 mls @ 202 mls/hr IV Q6H PRN PRN Reason: Nausea And Vomiting Stop: 12/10/23 08:51 Last Infusion: 11/12/23 13:08 Dose: Infused Metoprolol Tartrate (Metoprolol Tartrate 50 Mg Tab) 50 mg PO BID [facility] Stop: 12/11/23 20:59 Last Admin: 11/12/23 08:02 Dose: 50 mg Nitroglycerin (Nitroglycerin Sl 0.4 Mg/Tab Tab) 0.4 mg SL Q5M PRN PRN Reason: Chest Pain Stop: 12/09/23 07:40 Ondansetron HCl (Ondansetron Inj 2 Mg/Ml 2 Ml Vial) 4 mg IV Q6H PRN PRN Reason: Nausea And Vomiting Stop: 12/09/23 19:50 Last Admin: 11/12/23 07:23 Dose: 4 mg Pantoprazole Sodium (Pantoprazole 40 Mg Tab) 40 mg PO DAILY [facility] Stop: 12/09/23 08:59 Last Admin: 11/12/23 07:58 Dose: 40 mg Polyethylene Glycol (Polyethylene (Miralax) 17 Gm Pack) 17 gm PO DAILY PRN PRN Reason: Constipation Stop: 12/09/23 07:40 Prednisone (Prednisone 5 Mg Tab) 5 mg PO DAILY [facility] Stop: 12/09/23 08:59 Last Admin: 11/12/23 07:58 Dose: 5 mg Sertraline HCl (Sertraline Hcl 50 Mg Tablet) 25 mg PO DAILY [facility] Stop: 12/09/23 08:59 Last Admin: 11/12/23 07:58 Dose: 25 mg Tramadol HCl (Tramadol Hcl 50 Mg Tablet) 50 mg PO Q6H PRN PRN Reason: Mod-Sev Pain (Scale 4-10) Stop: 12/09/23 19:44 Last Admin: 11/12/23 06:11 Dose: 50 mg Vitamin D (Cholecalciferol 25 Mcg (1000 Units) Tab) 25 mcg PO DAILY [facility] Stop: 12/09/23 08:59 Last Admin: 11/12/23 07:58 Dose: 25 mcg Warfarin Sodium (Warfarin Sod 5 Mg Tab) 5 mg PO DAILY@1600 [facility] Stop: 12/11/23 15:59 Last Admin: 11/11/23 18:15 Dose: 5 mg (1) Acute deep vein thrombosis (DVT) of right upper extremity Affected thrombotic vein of extremity: unspecified vein of extremity Qualified Code(s): I82.621 - Acute embolism and thrombosis of deep veins of right upper extremity
[2023-11-12 17:17] LABS: ANTI-Xa, UFH(UnfractionatedHep 0.22 IU/ml (0.3-0.7)
[2023-11-13 01:33] LABS: ANTI-Xa, UFH(UnfractionatedHep 0.26 IU/ml (0.3-0.7)
[2023-11-13 08:12] LABS: Calcium 8.8 mg/dl (8.6-10.3); Creatinine Clr Calc Pharmacy 15.5 ml/min; Est GFR (African American) 15.2 ml/min; Est GFR (Non-African American) 13.1 ml/min; Potassium 3.4 mmol/L (3.5-5.1)
[2023-11-13 08:19] LABS: ANTI-Xa, UFH(UnfractionatedHep 0.26 IU/ml (0.3-0.7); INR 2.6 (0.9-1.1); Prothrombin Time 26.8 Seconds (9.0-12.0)
--- NOTE | 2023-11-13 15:02 | Hospitalist Progress Note ---
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 Patient was initially presented to [facility] with shortness of breath and cough and fever ongoing for a week. Initial workup showed severe ABIODUN. She was treated with IV antibiotics for possible sepsis and subsequently transferred to [facility] for further evaluation. Blood cultures were negative. IgM Lyme antibody was positive and was started on doxycycline. CT PE study was considered for shortness of breath but because of rapidly worsening kidney function CT PE was not done. Her ABIODUN is thought to be possibly from exacerbated lupus nephritis. Renal biopsy findings suggested collapsing glomerulonephritis, form of focal segmental glomera sclerosis. She was treated with pulse dose steroids and started on intermittent hemodialysis due to deteriorating kidney function. Following the biopsy she developed perinephric hematoma and required arterial embolization. She suffered from severe p osthemorrhagic anemia needing multiple blood transfusions and experienced a delayed hemolytic transfusion reaction attributed to the JKa antigen. She was also tested positive for CMV viremia. She was treated for suspected CMV colitis and spontaneous bacterial peritonitis with valganciclovir, cefepime and metronidazole.. ID recommended weekly CMV titers for 4 weeks and to be followed by ID outpatient 6 to 8 weeks.Also to be followed by Nephrology, rheumatology and hematology Acute DVT involving right upper extremity Right innominate vein that extends into the right internal jugular vein. In addition, there is a focus of deep venous thrombus within the right subclavian vein that extends into the right cephalic vein. Started on IV heparin Elevate the hand Pain control with IV Tylenol Will discuss with the oven heater for this choice of oral anticoagulation No oven heater in [place] could be found so we will talk to Dr. 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 delayed hemolytic transfusion reaction attributed to the JKa antigen Close monitoring h and h while on iv heparin Will give 2 units of blood transfusions Hemoglobin has gone up to 9.8-remains stable Received Procrit 3 doses so far in the hemoglobin is maintaining Sinus tachycardia-chronic sinus tachycardia Echocardiography-mild concentric LVH, no regional wall motion abnormality, LV is hyperdynamic, EF more than 70%, grade 1 diastolic dysfunction there is no significant valvular heart disease Could be contributed by cellulitis involving the right upper extremity//phlebitis Elevated procalcitonin Started on Rocephin Appreciate cardiology input and recommendation Remains tachycardic but the rate is decreased to 110 Heart rate remains elevated at 115 Heart rate remains elevated but decreased at 103 ABIODUN/CKD Collapsing glomerulonephritis, form of focal segmental glomera sclerosis on renal biopsy On hemodialysis Appreciate nephrology input and recommendation Has a dialysis today and 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 Clinically better Will initiate PT and OT evaluation Admission and Anticipated Discharge Date Admission Date: November 09, 2023 Subjective 11/09/2023 The patient was seen and examined in emergency room She has been admitted early this morning Complains of some pain in the left upper extremity Has shortness of breath with minimal exertion Denies any abdominal pain, nausea or vomiting 11/10/2023 The patient was seen and examined in telemetry unit She has been feeling a little better today Feels generally weak and lethargic Right upper extremity pain and swelling are better Feels nauseous and vomiting 11/11/2023 The patient was seen and examined in telemetry unit She has been feeling much better but complains to pain in the left upper extremity Ultrasound did show superficial phlebitis-Voltaren has been applied Will get PT OT evaluation and possible discharge in a day or 2 11/12/2023 The patient was seen and examined in telemetry unit She has a dialysis today and has been feeling very tired Pain seems to be reasonably controlled Swelling of the right upper extremity has been improving 11/13/2023 The patient was seen and examined in telemetry She has been feeling much better today Right upper extremity pain and swelling have improved She has been feeling a little better with her weakness and tiredness Review of Systems Review of Systems: All systems reviewed and are unremarkable except as noted below Physical Exam Physical Exam: Lying in bed with minimal distress Constitutional: + ill appearing and average body habitus Eyes: PERRL, conjunctivae normal, anicteric sclerae ENMT: external ear and nose normal, oropharynx normal Neck: trachea midline, no thyromegaly Respiratory: no respiratory distress Auscultation: lungs clear to auscultation bilaterally Cardiovascular: Rate/Rhythm: regular rate, regular rhythm and + tachycardic Heart Sounds: normal S1 and normal S2; no murmur Extremities: + edema (Trace edema bilaterally) Gastrointestinal (Abdomen): Inspection/Auscultation: normal bowel sounds; abdomen not distended Percussion/Palpation: abdomen soft; abdomen nontender Musculoskeletal: Right upper extremity is swollen. Minimal pain in the joints with movement Neurologic: normal touch/pain/proprioception and moves all extremities; no focal motor deficits Psychiatric: A+Ox3, euthymic affect Lymphatic: no cervical or axillary lymphadenopathy Results & Data Results & Data Vital Signs (Past 12 Hours) Vital Signs Temp Pulse Pulse Resp BP Pulse Ox O2 Del Method 11/13/23 11:45 36.6 C 103 H 17 157/97 H 96 Room Air 11/13/23 10:25 Room Air 11/13/23 08:40 104 H 11/13/23 07:46 36.5 C 107 H 16 135/87 99 Room Air Laboratory Results [facility] 11/13/23 07:29 Sodium 137 Potassium 3.4 L Chloride 99 Carbon Dioxide 22 BUN 25 H Creatinine 4.19 H D Glucose 84 Calcium 8.8 Medications Administered Current Inpatient Medications Acetaminophen (Acetaminophen 325 Mg Tab) 650 mg PO Q4H PRN PRN Reason: Pain or Fever Stop: 12/09/23 07:40 Diclofenac Sodium (Diclofenac Sod 1% Gel 100 Gm Tube) 1 gm EXT BID [facility]; Protocol Stop: 12/11/23 08:59 Last Admin: 11/13/23 09:39 Dose: 1 gm Epoetin Raplh (Epoetin Ralph 10,000 Units/Ml Vial) 10,000 units IV ONE ONE Stop: 11/14/23 07:01 Ferrous Sulfate (Ferrous Sulfate 325 Mg Tab) 325 mg PO DAILY [facility] Stop: 12/09/23 08:59 Last Admin: 11/13/23 09:38 Dose: 325 mg Folic Acid (Folic Acid 1 Mg Tab) 1 mg PO DAILY [facility] Stop: 12/09/23 08:59 Last Admin: 11/13/23 09:38 Dose: 1 mg Hydromorphone HCl (Hydromorphone Inj 0.5 Mg/0.5 Ml Syr) 0.25 mg IV Q6H PRN PRN Reason: Pain Stop: 11/24/23 10:22 Last Admin: 11/13/23 14:58 Dose: 0.25 mg Hydroxychloroquine Sulfate (Hydroxychloroquine Sulfate 200 Mg Tab) 400 mg PO HS [facility] Stop: 12/09/23 20:59 Last Admin: 11/12/23 21:37 Dose: 400 mg Heparin Sodium/Dextrose (Heparin Sodium/Dextrose) 25,000 units in 500 mls @ 17 mls/hr IV .Q24H [facility]; Protocol Stop: 12/09/23 03:59 Last Titration: 11/13/23 10:33 Dose: 1,000 units/hr, 20 mls/hr Ceftriaxone Sodium 2,000 mg/ (Dextrose) 50 mls @ 100 mls/hr IV Q24H [facility]; Protocol Stop: 11/17/23 03:59 Last Infusion: 11/13/23 05:26 Dose: Infused Promethazine HCl 12.5 mg/ (Sodium Chloride) 50.5 mls @ 202 mls/hr IV Q6H PRN PRN Reason: Nausea And Vomiting Stop: 12/10/23 08:51 Last Infusion: 11/12/23 20:49 Dose: Infused Sodium Chloride (Nss) 1,000 mls @ 0 mls/hr IV .Q0M PRN PRN Reason: For Hemodialysis Use ONLY Stop: 11/14/23 12:59 Metoprolol Tartrate (Metoprolol Tartrate 50 Mg Tab) 50 mg PO BID [facility] Stop: 12/11/23 20:59 Last Admin: 11/13/23 09:38 Dose: 50 mg Nitroglycerin (Nitroglycerin Sl 0.4 Mg/Tab Tab) 0.4 mg SL Q5M PRN PRN Reason: Chest Pain Stop: 12/09/23 07:40 Ondansetron HCl (Ondansetron Inj 2 Mg/Ml 2 Ml Vial) 4 mg IV Q6H PRN PRN Reason: Nausea And Vomiting Stop: 12/09/23 19:50 Last Admin: 11/13/23 11:04 Dose: 4 mg Pantoprazole Sodium (Pantoprazole 40 Mg Tab) 40 mg PO DAILY [facility] Stop: 12/09/23 08:59 Last Admin: 11/13/23 09:38 Dose: 40 mg Polyethylene Glycol (Polyethylene (Miralax) 17 Gm Pack) 17 gm PO DAILY PRN PRN Reason: Constipation Stop: 12/09/23 07:40 Prednisone (Prednisone 5 Mg Tab) 5 mg PO DAILY [facility] Stop: 12/09/23 08:59 Last Admin: 11/13/23 09:38 Dose: 5 mg Sertraline HCl (Sertraline Hcl 50 Mg Tablet) 25 mg PO DAILY [facility] Stop: 12/09/23 08:59 Last Admin: 11/13/23 09:38 Dose: 25 mg Tramadol HCl (Tramadol Hcl 50 Mg Tablet) 50 mg PO Q6H PRN PRN Reason: Mod-Sev Pain (Scale 4-10) Stop: 12/09/23 19:44 Last Admin: 11/13/23 12:48 Dose: 50 mg Vitamin D (Cholecalciferol 25 Mcg (1000 Units) Tab) 25 mcg PO DAILY [facility] Stop: 12/09/23 08:59 Last Admin: 11/13/23 09:38 Dose: 25 mcg Warfarin Sodium (Warfarin Sod 5 Mg Tab) 5 mg PO DAILY@1600 [facility] Stop: 12/11/23 15:59 Last Admin: 11/12/23 18:46 Dose: 5 mg (1) Acute deep vein thrombosis (DVT) of right upper extremity Affected thrombotic vein of extremity: unspecified vein of extremity Qualified Code(s): I82.621 - Acute embolism and thrombosis of deep veins of right upper extremity
[2023-11-13] MEDS: WARFARIN SOD 2.5 MG TAB PO SCH (16:58)
[2023-11-13 17:12] LABS: ANTI-Xa, UFH(UnfractionatedHep 0.35 IU/ml (0.3-0.7)
[2023-11-14] MEDS ORDERED: SODIUM CHLORIDE 0.9% 1,000 ML IV PRN (07:00)
[2023-11-14 08:46] LABS: Prothrombin Time 49.5 Seconds (9.0-12.0)
[2023-11-14] MEDS: LORazepam 0.25 MG in SYRINGE 0.125 ML IV STA (10:05)
--- NOTE | 2023-11-14 10:20 | CT Scan Report ---
CT SCAN OF THE BRAIN WITHOUT IV CONTRAST CLINICAL HISTORY: Change in mental status. COMPARISON STUDY: No priors. TECHNIQUE: Unenhanced axial CT scan of the brain is performed from the vertex to the skull base. A d ose lowering technique was utilized adhering to the principles of ALARA. CT DOSE: 547.75 mGy.cm FINDINGS: Brain parenchyma: There are punctate scattered white matter calcifications. The brain parenchyma is o therwise normal in appearance. There is no hemorrhage, mass effect, or evidence of acute territorial ischemia by CT criteria. Pompa-white matter differentiation is preserved. No extra-axial fluid collect ion is seen. Ventricles, sulci, cisterns: Normal in configuration. Intracranial vasculature: The visualized intracranial vasculature at the skull base is normal in appe arance. Calvarium: Unremarkable. Sinuses and mastoids: There is mild mucosal thickening within the left ethmoid sinuses. The remaining visualized paranasal sinuses are clear. The mastoid air cells are well pneumatized. Orbits: The bony orbits are grossly intact. IMPRESSION: No acute intracranial abnormality. ACT 112: Negative or not required by law. Electronically signed by: Modesto Collado M.D. 11/14/2023 10:19 AM
[2023-11-14 10:26] LABS: Anisocytosis Present; Basophils # (auto) 0.01 K/uL (0.00-0.20); Basophils % (auto) 0.1 %; Eosinophils # (auto) 0.08 K/uL (0.00-0.50); Eosinophils % (auto) 0.5 %; Hematocrit (blood only) 30.8 % (37.0-47.0); Immature Granulocytes # (auto) 1.14 K/uL (0.01-0.20); Immature Granulocytes % (auto) 7.7 %; Lymphocytes # (auto) 1.86 K/uL (1.20-3.40); Lymphocytes % (auto) 12.6 %; Mean Corpuscular Hemoglobin 28.7 pg (25.0-34.0); Mean Corpuscular Hgb Conc 32.5 g/dL (32.0-36.0); Mean Corpuscular Volume 88.3 fL (80.0-100.0); Mean Platelet Volume 11.1 fL (9.4-12.4); Monocytes % (auto) 9.5 %; Neutrophils % (auto) 69.6 %; Platelet Count 163 K/uL (130-400); RDW Coefficient of Variation 17.5 % (11.5-14.5); RDW Standard Deviation 55.7 fL (36.4-46.3); Red Blood Count 3.49 M/uL (4.20-5.40); Toxic Granulation 3+; Toxic Vacuolation 1+; White Blood Count 14.79 K/ul (4.8-10.8)
[2023-11-14 10:35] LABS: BUN Creatinine Ratio 6.3 (10-20); Calcium 9.4 mg/dl (8.6-10.3); Creatinine Clr Calc Pharmacy 11.4 ml/min; Est GFR (African American) 10.4 ml/min; Magnesium 1.7 mg/dl (1.7-2.4); Phosphorus 4.6 mg/dl (2.5-4.9); Potassium 3.2 mmol/L (3.5-5.1)
[2023-11-14] MEDS: EPOETIN ALFA 10,000 UNITS/ML VIAL IV ONE (10:51)
[2023-11-14] MEDS: POTASSIUM CHLORIDE / WTR 10 MEQ/100 ML PLCT IV SCH (10:55)
--- NOTE | 2023-11-14 11:06 | Nephrology Progress Note ---
Date of Service November 14, 2023 Assessment & Plan Admission and Anticipated Discharge Date Admission Date: November 09, 2023 Subjective Assessment & Plan (1) ABIODUN (acute kidney injury): Plan: Even though rise of the creatinine seems like acute kidney injury there is a high possibility she will not have renal recovery and likely will be dialysis dependent. from [id number] even though creatinine was not significantly worse the renal biopsy finding from 2017 in 2023 are very different. she has been getting dialysis on Sunday schedule. She had dialysis on Sunday. Electrolytes are stable and no signs of volume overload. Doing fine. CVC and BP fine. prednisone and Plaquenil and will be continued. She was brought to dialysis unit. Suddenly she started having panic attack and wanted to get out of bed and screaming. Had CT head--No bleed. Dialysis not done. Then got Ativan and Dilaudid and now is sleepy. BUN is 36 and creat 5+. last dialysis was Sunday. This is not uremia. Appears like psych Breakdown/Panic attack--She has h/o that . case discussed with primary team. Will do dialysis either tomorrow or later today depending on the schedule and patients condition. . (2) Lupus nephritis: Plan: longstanding complicated history of lupus with previously membranous type paulo pus. But on this recent biopsy in September 2023 she had collapsing glomerulopathy consistent with FSGS. Associated with high-grade proteinuria and now significantly abnormal kidney function. (3) Acute deep vein thrombosis (DVT) of right upper extremity: Plan: Now transitioned to Coumadin. Subjective She was brought to dialysis unit. Suddenly she started having panic attack and wanted to get out of bed and screaming. Had CT head--No bleed. Dialysis not done. Then got Ativan and Dilaudid and now is sleepy. No shortness of breath. Review of Systems Review of Systems: All other systems were reviewed and negative except as noted in HPI Physical Exam Physical Exam: General exam: Appears comfortable, no acute distress HEENT: Pupils are equal and reactive to light Neck: No JVD, neck is supple trachea is midline Respiratory system: Clear breath sounds bilaterally. Gastrointestinal: Abdomen is soft, non distended, non tender, bowel sounds are present CVS: Regular rate and rhythm. No murmurs, rubs or gallops Musculoskeletal: No joint or muscle tenderness Extremities: right arm swollen Neuro: Oriented, no tremors, no focal neurological deficits Skin: diffuse lichenification Results & Data Vital Signs (Past 12 Hours) Vital Signs Temp Pulse Pulse Resp BP Pulse Ox O2 Del Method 11/14/23 11:00 36.7 C 72 18 147/83 H 97 Room Air 11/14/23 07:31 36.7 C 114 H 18 143/96 H 100 Room Air 11/14/23 07:20 116 H 11/14/23 03:56 36.6 C 118 H 18 141/85 H 99 Room Air
[2023-11-14] MEDS ORDERED: POTASSIUM CHLORIDE / WTR 10 MEQ/100 ML PLCT IV SCH (13:15)
--- NOTE | 2023-11-14 13:39 | Hospitalist Progress Note ---
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 Patient was initially presented to [facility] with shortness of breath and cough and fever ongoing for a week. Initial workup showed severe ABIODUN. She was treated with IV antibiotics for possible sepsis and subsequently transferred to [facility] for further evaluation. Blood cultures were negative. IgM Lyme antibody was positive and was started on doxycycline. CT PE study was considered for shortness of breath but because of rapidly worsening kidney function CT PE was not done. Her ABIODUN is thought to be possibly from exacerbated lupus nephritis. Renal biopsy findings suggested collapsing glomerulonephritis, form of focal segmental glomera sclerosis. She was treated with pulse dose steroids and started on intermittent hemodialysis due to deteriorating kidney function. Following the biopsy she developed perinephric hematoma and required arterial embolization. She suffered from severe post hemorrhagic anemia needing multiple blood transfusions and experienced a delayed hemolytic transfusion reaction attributed to the JKa antigen. She was also tested positive for CMV viremia. She was treated for suspected CMV colitis and spontaneous bacterial peritonitis with valganciclovir, cefepime and metronidazole.. ID recommended weekly CMV titers for 4 weeks and to be followed by ID outpatient 6 to 8 weeks.Also to be followed by Nephrology, rheumatology and hematology Acute DVT involving right upper extremity Right innominate vein that extends into the right internal jugular vein. In addition, there is a focus of deep venous thrombus within the right subclavian vein that extends into the right cephalic vein. Started on IV heparin Elevate the hand Pain control with IV Tylenol Will discuss with the web systems developer for this choice of oral anticoagulation No web systems developer in [place] could be found so we will talk to Dr. 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 delayed hemolytic transfusion reaction attributed to the JKa antigen Close monitoring h and h while on iv heparin Will give 2 units of blood transfusions Hemoglobin has gone up to 9.8-remains stable Received Procrit 3 doses so far in the hemoglobin is maintaining Sinus tachycardia-chronic sinus tachycardia Echocardiography-mild concentric LVH, no regional wall motion abnormality, LV is hyperdynamic, EF more than 70%, grade 1 diastolic dysfunction there is no significant valvular heart disease Could be contributed by cellulitis involving the right upper extremity//phlebitis Elevated procalcitonin Started on Rocephin Appreciate cardiology input and recommendation Remains tachycardic but the rate is decreased to 110 Heart rate remains elevated at 115 Heart rate remains elevated but decreased at 103 ABIODUN/CKD Collapsing glomerulonephritis, form of focal segmental glomera sclerosis on renal biopsy On hemodialysis Appreciate nephrology input and recommendation Has a dialysis today and 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 Clinically better Will initiate PT and OT evaluation Admission and Anticipated Discharge Date Admission Date: November 09, 2023 Results & Data Results & Data Vital Signs (Past 12 Hours) Vital Signs Temp Pulse Pulse Resp BP Pulse Ox O2 Del Method 11/14/23 11:00 36.7 C 72 18 147/83 H 97 Room Air 11/14/23 07:31 36.7 C 114 H 18 143/96 H 100 Room Air 11/14/23 07:20 116 H 11/14/23 03:56 36.6 C 118 H 18 141/85 H 99 Room Air Medications Administered Current Inpatient Medications Acetaminophen (Acetaminophen 325 Mg Tab) 650 mg PO Q4H PRN PRN Reason: Pain or Fever Stop: 12/09/23 07:40 Diclofenac Sodium (Diclofenac Sod 1% Gel 100 Gm Tube) 1 gm EXT BID [facility]; Protocol Stop: 12/11/23 08:59 Last Admin: 11/14/23 08:16 Dose: 1 gm Ferrous Sulfate (Ferrous Sulfate 325 Mg Tab) 325 mg PO DAILY [facility] Stop: 12/09/23 08:59 Last Admin: 11/14/23 10:22 Dose: 325 mg Folic Acid (Folic Acid 1 Mg Tab) 1 mg PO DAILY [facility] Stop: 12/09/23 08:59 Last Admin: 11/14/23 10:22 Dose: 1 mg Hydromorphone HCl (Hydromorphone Inj 0.5 Mg/0.5 Ml Syr) 0.25 mg IV Q6H PRN PRN Reason: Pain Stop: 11/24/23 10:22 Last Admin: 11/14/23 10:21 Dose: 0.25 mg Hydroxychloroquine Sulfate (Hydroxychloroquine Sulfate 200 Mg Tab) 400 mg PO HS [facility] Stop: 12/09/23 20:59 Last Admin: 11/13/23 20:19 Dose: 400 mg Promethazine HCl 12.5 mg/ (Sodium Chloride) 50.5 mls @ 202 mls/hr IV Q6H PRN PRN Reason: Nausea And Vomiting Stop: 12/10/23 08:51 Last Infusion: 11/13/23 20:10 Dose: Infused Lorazepam 0.5 mg/ Syringe 0.5 mls @ 2 mls/min IV Q8H PRN PRN Reason: Anxiety/Agitation Stop: 12/14/23 11:59 Last Admin: 11/14/23 14:01 Dose: 2 mls/min Vancomycin HCl 1,250 mg/ (Sodium Chloride) 275 mls @ 200 mls/hr IV ONE ONE Stop: 11/14/23 20:22 Ampicillin Sodium 2,000 mg/ (Sodium Chloride) 100 mls @ 200 mls/hr IV Q12H [facility] Stop: 11/24/23 18:59 Cefepime HCl 1,000 mg/ Syringe 10 mls @ 5 mls/min IV Q24H [facility] Stop: 11/24/23 18:59 Metoprolol Tartrate (Metoprolol Tartrate 50 Mg Tab) 50 mg PO BID [facility] Stop: 12/11/23 20:59 Last Admin: 11/14/23 10:21 Dose: 50 mg Miscellaneous Information (Vancomycin Consult Active) 1 each N/A UD PRN PRN Reason: Consult Stop: 12/14/23 18:38 Nitroglycerin (Nitroglycerin Sl 0.4 Mg/Tab Tab) 0.4 mg SL Q5M PRN PRN Reason: Chest Pain Stop: 12/09/23 07:40 Ondansetron HCl (Ondansetron Inj 2 Mg/Ml 2 Ml Vial) 4 mg IV Q6H PRN PRN Reason: Nausea And Vomiting Stop: 12/09/23 19:50 Last Admin: 11/14/23 08:15 Dose: 4 mg Pantoprazole Sodium (Pantoprazole 40 Mg Tab) 40 mg PO DAILY [facility] Stop: 12/09/23 08:59 Last Admin: 11/14/23 10:22 Dose: 40 mg Polyethylene Glycol (Polyethylene (Miralax) 17 Gm Pack) 17 gm PO DAILY PRN PRN Reason: Constipation Stop: 12/09/23 07:40 Prednisone (Prednisone 5 Mg Tab) 5 mg PO DAILY [facility] Stop: 12/09/23 08:59 Last Admin: 11/14/23 10:22 Dose: 5 mg Sertraline HCl (Sertraline Hcl 50 Mg Tablet) 25 mg PO DAILY [facility] Stop: 12/09/23 08:59 Last Admin: 11/14/23 10:22 Dose: 25 mg Tramadol HCl (Tramadol Hcl 50 Mg Tablet) 50 mg PO Q6H PRN PRN Reason: Mod-Sev Pain (Scale 4-10) Stop: 12/09/23 19:44 Last Admin: 11/13/23 12:48 Dose: 50 mg Vitamin D (Cholecalciferol 25 Mcg (1000 Units) Tab) 25 mcg PO DAILY [facility] Stop: 12/09/23 08:59 Last Admin: 11/14/23 10:21 Dose: 25 mcg Warfarin Sodium (Warfarin Sod 2.5 Mg Tab) 2.5 mg PO DAILY@1600 [facility] Stop: 12/13/23 15:59 Last Admin: 11/13/23 16:58 Dose: 2.5 mg (1) Acute deep vein thrombosis (DVT) of right upper extremity Affected thrombotic vein of extremity: unspecified vein of extremity Qualified Code(s): I82.621 - Acute embolism and thrombosis of deep veins of right upper extremity
[2023-11-14] MEDS: LORazepam 0.5 MG in SYRINGE 0.25 ML IV PRN (14:01)
--- NOTE | 2023-11-14 15:58 | Psychiatric Consultation ---
Date of Consultation November 14, 2023 Impression / Recommendations Impression Diagnostically presents with acute mental status change with confusion and verbal agitation and significant restlessness. Given her severe systemic lupus the differential is broad and such type of sudden change in mental status with neuropsychiatric symptom emergence can be a sign of significantly increased risk for morbidity/mortality. Head CT showed no acute changes to suggest new stroke however it remains unclear what is causing new mental status change and her WBC is significantly elevated today. No acute signs of psychosis but hard to assess given her level of psychic distress and confusion. If presentation is due to SLE psychosis typical treatment focuses on immune suppression however, if change in mental status is due to new infection or worsening recent CMV or worsening cellulitis then this could make things worse. Use if antipsychotics, which typically are 1st line for agitation with delirium, is complicated in SLE due to increased risk of EPS as well as risk of lowering seizure threshold and potential to increase risk for cardiac/stroke/metabolic sequelae for which there is increased risk with SLE, her current DVT and family history of stroke. However, there is also literature to suggest that antipsychotic use may lower risk of mortality in individuals with neuropsychiatric symptoms of SLE. If seizure and stroke risk is felt to be low then would be cautious with any use of antipsychotics and only very low dose. Ativan has been largely ineffective so far and can worsen delirium but given limitations in options for po or IM antipsychotics would continue to use this for now pending results of brain MRI and neurology input. Given the risks associated with such a presentation would encourage low threshold for consideration for transfer to a higher level of care. Overall, I spent a total of 80 minutes with this case including review of chart records, review of labwork, direct evaluation of the patient at bedside, counseling the patient, discussion of the patient with the Nurse and with the hospitalist provider, discussion with the psychiatric liason during clinical rounds, review of collateral historian information from the family and documentation in the electronic health record. 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 * Consider trial of ativan 2mg IV -Continue medical workup to determine cause of altered mental status to rule out infection, seizure, stroke, encephalitis etc. If these are ruled out then encourage consideration for role of immune suppression for SLE neuropsychiatric symptoms. -If she will accept po medications would offer: risperidone francisco tab 0.5mg BID ODT prn for agitation -If absolutely required for acute safety would use: olanzapine 2.5mg IM (do not exceed 5mg in 24 hours, DO NOT give within 1 hour or concurrently with IM or IV benzodiazepines given risk of fatal respiratory suppression) -Would avoid haldol given risks of EPS and cardiac risks Psych History Identifying Data 33 yo woman with systemic lupus and multiple subsequent medical sequelae including significant kidney damage and recent CMV infection with psychiatric history of LITA admitted medically for DVT. psychiatry consulted for "panic attack". Chief Complaint "I need to get to February". History of Present Illness Dena was admitted for DVT in her arm and per notes was communicating well and knowledgeable about her medical history up until this morning when she developed significant change in mental status. On seeing her she is almost asleep then abruptly yells out in a barely comprehensible way multiple times in a row. At one point asks to have help up to get to February. Recognized her sisters voice on the phone it seemed but abruptly went back to yelling out. Denied pain. Further history per psych liason note including collateral from patient's sister: " Met with patient for consult service. Staff at beside. Patient is unable to complete psychiatric assessment at this time. She is in bed, restless with garbled speech. She is oriented to self and sometimes situation. She is clearly uncomfortable, but unable to follow simple directions. She is continuously trying to get OOB however is a VERY HIGH fall risk that could lead to other significant issues. Patient was able to identify her sister, Yaritza, as her contact and gives permission to speak with her, staff at bedside as witness. Call placed to Yaritza, sister, who resides in [facility]. Yaritza reports patient lives in [place], where she was raised. Patient is currently taking college courses, sister is unsure of what university, suspected she is enrolled at [employer]. Patient has a history of Lupus with worsening complications. Patient's mother also had Lupus and from complications of immunocompromised/COVID, ~3 years ago. 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 Yaritza reports "my mother wasn't always the nicest pers on and was a stressor herself". Yaritza moved to [facility] around age 16 to be with grandmother, "we weren't as close, as she was with Dena". Yaritza does not recall patient having ay significant psychiatric history. Patient had started talk therapy a couple years ago, unsure if she is currently participating. Yaritza does not recall patient ever taking psychiatric medications. Yaritza denied having any safety concerns regarding discharge when medically stable. Yaritza plans to visit patient this weekend (most likely Sunday). Yaritza would like updates from the medical team; minimal information was given to Yaritza, considering patient's confusion. Yaritza is encouraged to follow-up with medical team for updates/treatment plan. " Allergies Allergy/AdvReac Type Severity Reaction Status Date / Time No Known Allergies Allergy Unverified 11/09/23 02:51 Home Medications Medication Instructions Recorded Confirmed Type cholecalciferol (vitamin D3) 25 25 mcg PO DAILY 11/09/23 11/09/23 History mcg (1,000 unit) chewable tablet (Vitamin D3) ferrous sulfate 325 mg (65 mg 325 mg PO DAILY 11/09/23 11/09/23 History iron) tablet (FeroSul) folic acid 1 mg tablet 1 mg PO DAILY 11/09/23 11/09/23 History hydroxychloroquine 200 mg tablet 400 mg PO HS 11/09/23 11/09/23 History (Plaquenil) metoprolol tartrate 25 mg tablet 25 mg PO BID 11/09/23 11/09/23 History omeprazole 20 mg tablet,delayed 20 mg PO DAILY 11/09/23 11/09/23 History release prednisone 5 mg tablet 5 mg PO DAILY 11/09/23 11/09/23 History sertraline 25 mg tablet 25 mg PO DAILY 11/09/23 11/09/23 History Patient History Social History Smoking Status: Former smoker Hx Alcohol Use: Yes Hx Substance Use: No Preferred Language: Chinese Communication Ability: Effective Refrigeration Service Technician Required: No Beliefs That Will Affect Care: None Current Living Situation: Alone Other Information That Helps Us Care for You: No Feels Safe at Home: Yes Assistive Devices: Glasses Physical Exam Psychiatric: Orientation: alert and oriented to person Apperance: + disheveled Eye Contact: + poor eye contact Motor Behavior: + psychomotor agitation Speech: + abnormal rate/rhythm/volume of speech (garbled) Affect: + labile affect Mood: + anxious mood Thought Process: + looseness of associations Insight: + limited insight Judgment: + limited judgement Vital Signs (Past 24 Hours): Last Vital Signs Temp 36.7 C 11/14/23 11:00 Pulse 139 H 11/14/23 15:21 Resp 18 11/14/23 11:00 BP 147/83 H 11/14/23 11:00 Pulse Ox 97 11/14/23 11:00 O2 Del Method Room Air 11/14/23 11:00 Review of Systems Unobtainable due to cognitive status Results & Data (PSY) Laboratory Results Significant elevation in WBC Diagnostic Findings Head CT this morning read as no acute findings by radiologist Medications Administered Diclofenac Sodium (Diclofenac Sod 1% Gel 100 Gm Tube) 1 gm EXT BID KIKA; Protocol Stop: 12/11/23 08:59 Last Admin: 11/14/23 08:16 Dose: 1 gm Documented By: Admin: 11/13/23 19:58 Dose: 1 gm Documented By: Admin: 11/13/23 09:39 Dose: 1 gm Documented By: Admin: 11/12/23 21:37 Dose: 1 gm Documented By: Admin: 11/12/23 07:27 Dose: 1 gm Documented By: Admin: 11/11/23 21:18 Dose: 1 gm Documented By: Admin: 11/11/23 09:32 Dose: 1 gm Documented By: FE Ferrous Sulfate (Ferrous Sulfate 325 Mg Tab) 325 mg PO DAILY [facility] Stop: 12/09/23 08:59 Last Admin: 11/14/23 10:22 Dose: 325 mg Documented By: Admin: 11/13/23 09:38 Dose: 325 mg Documented By: Admin: 11/12/23 07:58 Dose: 325 mg Documented By: Admin: 11/11/23 09:32 Dose: 325 mg Documented By: Admin: 11/10/23 08:18 Dose: 325 mg Documented By: Admin: 11/09/23 11:20 Dose: 325 mg Documented By: GERARDO Folic Acid (Folic Acid 1 Mg Tab) 1 mg PO DAILY KIKA Stop: 12/09/23 08:59 Last Admin: 11/14/23 10:22 Dose: 1 mg Documented By: Admin: 11/13/23 09:38 Dose: 1 mg Documented By: Admin: 11/12/23 07:58 Dose: 1 mg Documented By: Admin: 11/11/23 09:32 Dose: 1 mg Documented By: Admin: 11/10/23 08:17 Dose: 1 mg Documented By: Admin: 11/09/23 11:20 Dose: 1 mg Documented By: GERARDO Hydromorphone HCl (Hydromorphone Inj 0.5 Mg/0.5 Ml Syr) 0.25 mg IV Q6H PRN PRN Reason: Pain Stop: 11/24/23 10:22 Last Admin: 11/14/23 10:21 Dose: 0.25 mg Documented By: Admin: 11/13/23 14:58 Dose: 0.25 mg Documented By: Admin: 11/12/23 17:35 Dose: 0.25 mg Documented By: Admin: 11/12/23 07:23 Dose: 0.25 mg Documented By: Admin: 11/12/23 00:27 Dose: 0.25 mg Documented By: Admin: 11/11/23 18:14 Dose: 0.25 mg Documented By: Admin: 11/11/23 03:42 Dose: 0.25 mg Documented By: Admin: 11/10/23 17:18 Dose: 0.25 mg Documented By: Admin: 11/10/23 10:36 Dose: 0.25 mg Documented By: FE Hydroxychloroquine Sulfate (Hydroxychloroquine Sulfate 200 Mg Tab) 400 mg PO HS KIKA Stop: 12/09/23 20:59 Last Admin: 11/13/23 20:19 Dose: 400 mg Documented By: Admin: 11/12/23 21:37 Dose: 400 mg Documented By: Admin: 11/11/23 21:19 Dose: 400 mg Documented By: Admin: 11/10/23 21:45 Dose: 400 mg Documented By: Admin: 11/09/23 19:42 Dose: 400 mg Documented By: SAVI Ceftriaxone Sodium 2,000 mg/ (Dextrose) 50 mls @ 100 mls/hr IV Q24H KIKA; Protocol Stop: 11/17/23 03:59 Last Infusion: 11/14/23 05:29 Dose: Infused Documented By: Admin: 11/14/23 04:59 Dose: 100 mls/hr Documented By: Infusion: 11/13/23 05:26 Dose: Infused Documented By: Admin: 11/13/23 04:56 Dose: 100 mls/hr Documented By: Infusion: 11/12/23 04:42 Dose: Infused Documented By: Admin: 11/12/23 04:01 Dose: 100 mls/hr Documented By: Infusion: 11/11/23 03:55 Dose: Infused Documented By: Admin: 11/11/23 03:23 Dose: 100 mls/hr Documented By: Infusion: 11/10/23 05:11 Dose: Infused Documented By: Admin: 11/10/23 04:35 Dose: 100 mls/hr Documented By: SAVI Promethazine HCl 12.5 mg/ (Sodium Chloride) 50.5 mls @ 202 mls/hr IV Q6H PRN PRN Reason: Nausea And Vomiting Stop: 12/10/23 08:51 Last Infusion: 11/13/23 20:10 Dose: Infused Documented By: Admin: 11/13/23 19:55 Dose: 202 mls/hr Documented By: Infusion: 11/12/23 20:49 Dose: Infused Documented By: Admin: 11/12/23 20:34 Dose: 202 mls/hr Documented By: Infusion: 11/12/23 13:08 Dose: Infused Documented By: Admin: 11/12/23 12:49 Dose: 202 mls/hr Documented By: Infusion: 11/10/23 13:26 Dose: Infused Documented By: Admin: 11/10/23 13:06 Dose: 202 mls/hr Documented By: FE Lorazepam 0.5 mg/ Syringe 0.5 mls @ 2 mls/min IV Q8H PRN PRN Reason: Anxiety/Agitation Stop: 12/14/23 11:59 Last Admin: 11/14/23 14:01 Dose: 2 mls/min Documented By: ELIANE Metoprolol Tartrate (Metoprolol Tartrate 50 Mg Tab) 50 mg PO BID KIKA Stop: 12/11/23 20:59 Last Admin: 11/14/23 10:21 Dose: 50 mg Documented By: Admin: 11/13/23 20:19 Dose: 50 mg Documented By: Admin: 11/13/23 09:38 Dose: 50 mg Documented By: Admin: 11/12/23 21:36 Dose: 50 mg Documented By: Admin: 11/12/23 08:02 Dose: 50 mg Documented By: Admin: 11/11/23 21:19 Dose: 50 mg Documented By: KELLY Ondansetron HCl (Ondansetron Inj 2 Mg/Ml 2 Ml Vial) 4 mg IV Q6H PRN PRN Reason: Nausea And Vomiting Stop: 12/09/23 19:50 Last Admin: 11/14/23 08:15 Dose: 4 mg Documented By: Admin: 11/13/23 11:04 Dose: 4 mg Documented By: Admin: 11/13/23 04:56 Dose: 4 mg Documented By: Admin: 11/12/23 17:41 Dose: 4 mg Documented By: Admin: 11/12/23 07:23 Dose: 4 mg Documented By: Admin: 11/11/23 09:28 Dose: 4 mg Documented By: Admin: 11/10/23 15:33 Dose: 4 mg Documented By: Admin: 11/10/23 08:14 Dose: 4 mg Documented By: Admin: 11/09/23 19:57 Dose: 4 mg Documented By: CM(2) Pantoprazole Sodium (Pantoprazole 40 Mg Tab) 40 mg PO DAILY [facility] Stop: 12/09/23 08:59 Last Admin: 11/14/23 10:22 Dose: 40 mg Documented By: Admin: 11/13/23 09:38 Dose: 40 mg Documented By: Admin: 11/12/23 07:58 Dose: 40 mg Documented By: Admin: 11/11/23 09:32 Dose: 40 mg Documented By: Admin: 11/10/23 08:19 Dose: 40 mg Documented By: Admin: 11/09/23 11:19 Dose: 40 mg Documented By: GERARDO Prednisone (Prednisone 5 Mg Tab) 5 mg PO DAILY [facility] Stop: 12/09/23 08:59 Last Admin: 11/14/23 10:22 Dose: 5 mg Documented By: Admin: 11/13/23 09:38 Dose: 5 mg Documented By: Admin: 11/12/23 07:58 Dose: 5 mg Documented By: Admin: 11/11/23 09:21 Dose: 5 mg Documented By: Admin: 11/10/23 08:19 Dose: 5 mg Documented By: Admin: 11/09/23 11:19 Dose: 5 mg Documented By: GERARDO Sertraline HCl (Sertraline Hcl 50 Mg Tablet) 25 mg PO DAILY [facility] Stop: 12/09/23 08:59 Last Admin: 11/14/23 10:22 Dose: 25 mg Documented By: Admin: 11/13/23 09:38 Dose: 25 mg Documented By: Admin: 11/12/23 07:58 Dose: 25 mg Documented By: Admin: 11/11/23 09:24 Dose: 25 mg Documented By: Admin: 11/10/23 08:17 Dose: 25 mg Documented By: Admin: 11/09/23 11:20 Dose: 25 mg Documented By: GERARDO Tramadol HCl (Tramadol Hcl 50 Mg Tablet) 50 mg PO Q6H PRN PRN Reason: Mod-Sev Pain (Scale 4-10) Stop: 12/09/23 19:44 Last Admin: 11/13/23 12:48 Dose: 50 mg Documented By: Admin: 11/12/23 21:36 Dose: 50 mg Documented By: Admin: 11/12/23 06:11 Dose: 50 mg Documented By: Admin: 11/11/23 06:06 Dose: 50 mg Documented By: Admin: 11/10/23 21:43 Dose: 50 mg Documented By: Admin: 11/10/23 15:02 Dose: 50 mg Documented By: Admin: 11/10/23 08:09 Dose: 50 mg Documented By: Admin: 11/09/23 19:59 Dose: 50 mg Documented By: ANU(2) Vitamin D (Cholecalciferol 25 Mcg (1000 Units) Tab) 25 mcg PO DAILY [facility] Stop: 12/09/23 08:59 Last Admin: 11/14/23 10:21 Dose: 25 mcg Documented By: Admin: 11/13/23 09:38 Dose: 25 mcg Documented By: Admin: 11/12/23 07:58 Dose: 25 mcg Documented By: Admin: 11/11/23 09:32 Dose: 25 mcg Documented By: Admin: 11/10/23 08:19 Dose: 25 mcg Documented By: Admin: 11/09/23 11:19 Dose: 25 mcg Documented By: GERARDO Warfarin Sodium (Warfarin Sod 2.5 Mg Tab) 2.5 mg PO DAILY@1600 [facility] Stop: 12/13/23 15:59 Last Admin: 11/13/23 16:58 Dose: 2.5 mg Documented By: ELIANE Coding Level of Care Code 89696 IN/OBS CONSULT LVL 5,80M Diagnoses Delirium due to another medical condition F05 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
[2023-11-14] MEDS: LORazepam 2 MG in SYRINGE 1 ML IV STA (17:31)
--- NOTE | 2023-11-14 17:53 | Neurology Consultation ---
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) Recommend transfer to [facility] for higher level of care- communicated directly with primary/hospitalist team Recommend Psychiatry consult/may need antipsychotic medications Recommend rheumatology consultation Recommend MRI brain with and without contrast Recommend MRA brain and neck to evaluate for possible vasculitis May need CTA, undergoing Dialysis/Nephrology is following Recommend ID consultation= obtaining LP may be time limited as patient is fully anticoagulated secondary to DVT Recommend begin antimicrobial therapy to address NAIL FEEDER coverage Recommend EEG if symptoms persist, continue to provide seizure precautions and utilize benzodiazepines emergently for any breakthrough clinical seizure like activity Continue1:1 observation, continue neurological assessments and continue to monitor mentation Please obtain stat CT brain without contrast for any acute neurological decline Continue to monitor renal and hepatic function and continue to monitor/replace electrolytes Telehealth Consultation Telehealth Information Telehealth Information: I performed this visit using a real-time telehealth connection between my location and the patients location ([facility] [address]). After connecting through interactive tele-video, patient was identified by name and date of and/or wristband check.Patient (or authorized healthcare kiosk sales representative) was informed that this was a telemedicine visit and it was being conducted confidentially over secure lines. My office door was closed and no one else was present in the room with me.Patient (or authorized healthcare kiosk sales representative) provided consent to proceed with the visit, expressed an understanding of privacy and security of the telemedicine visit, and gave permission to have a hospital kiosk sales representative in the room in order to assist with the visit and to conduct portions of the visit, as needed. I informed the patient (or authorized healthcare kiosk sales representative) that I reviewed their record and presented the opportunity for them to ask any questions regarding the visit today. The patient agreed to participate. History of Present Illness Reason for Consultation: Encephalopathy Requesting Physician: Dr. Arechiga Attending Physician: Edda Arechiga MD History of Present Illness 33 yo female has been hospitalized demonstrating some changes in mentation but notable for acute and severe changes/decline in mentation today. She has undergone CT brain without contrast revealing no overt evidence of acute intracranial pathology. She has been undergoing dialysis and has been fully anticoagulated for upper extremity DVT. She has SLE and has been treated with daily prednisone but notably has spike in WBC today as well. I have performed televideo consultation in presence of RN and bedside 1:1 staff. She is awake and able to speak but does not answer questions appropriately. She appears to believe she is going to be taken somewhere. Then when she is provided reassurance of her safety she keeps saying sorry. Moves all extremities spontaneously and antigravity. No overt evidence of meningeal signs but technically limited via televideo. Allergies Allergy/AdvReac Type Severity Reaction Status Date / Time No Known Allergies Allergy Unverified 11/09/23 02:51 Home Medications Medication Instructions Recorded Confirmed Type cholecalciferol (vitamin D3) 25 25 mcg PO DAILY 11/09/23 11/09/23 History mcg (1,000 unit) chewable tablet (Vitamin D3) ferrous sulfate 325 mg (65 mg 325 mg PO DAILY 11/09/23 11/09/23 History iron) tablet (FeroSul) folic acid 1 mg tablet 1 mg PO DAILY 11/09/23 11/09/23 History hydroxychloroquine 200 mg tablet 400 mg PO HS 11/09/23 11/09/23 History (Plaquenil) metoprolol tartrate 25 mg tablet 25 mg PO BID 11/09/23 11/09/23 History omeprazole 20 mg tablet,delayed 20 mg PO DAILY 11/09/23 11/09/23 History release prednisone 5 mg tablet 5 mg PO DAILY 11/09/23 11/09/23 History sertraline 25 mg tablet 25 mg PO DAILY 11/09/23 11/09/23 History Patient History Social History Smoking Status: Former smoker Hx Alcohol Use: Yes Hx Substance Use: No Preferred Language: Tamazight Communication Ability: Effective 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 Beliefs That Will Affect Care: None Current Living Situation: Alone Other Information That Helps Us Care for You: No Feels Safe at Home: Yes Assistive Devices: Glasses Physical Exam Neurological Examination: Mental Status: Awake Unable to answer questions appropriately Seems to believe she is being taken away When provided with reassurance will then keep saying sorry CN testing: I: Difficult to accurately assess II:Difficult to accurately assess III/IV/: No evidence of gaze preference, hippus, nystagmus or roving eye mov ements V: Facial sensation is difficult to accurately assess VII: Facial movements appear without evidence of asymmetry VIII: Hearing appears grossly intact to loud voice bilaterally IX/X: Palate is difficult to accurately assess XI: Difficult to accurately assess XII: Tongue protrudes midline without evidence of biting Motor exam: Moves all extremities spontaneously/antigravity Sensory: Difficult to accurately assess Coordination: Deferred Reflexes: Deferred Gait: Deferred Results & Data Vital Signs (Past 12 Hours) Vital Signs Temp Pulse Pulse Resp BP Pulse Ox O2 Del Method 11/14/23 15:21 139 H 11/14/23 11:00 36.7 C 72 18 147/83 H 97 Room Air 11/14/23 07:31 36.7 C 114 H 18 143/96 H 100 Room Air 11/14/23 07:20 116 H Laboratory Results Abnormal lab results 11/14/23 11/14/23 Range/Units 07:30 09:21 WBC 14.79 H (4.8-10.8) K/ul RBC 3.49 L (4.20-5.40) M/uL Hgb 10.0 L (12.0-16.0) g/dl Hct 30.8 L (37.0-47.0) % RDW Std Deviation 55.7 H (36.4-46.3) fL RDW Coeff of Evelio 17.5 H (11.5-14.5) % Neut # (Auto) 10.30 H (1.40-6.50) K/uL [place] # (Auto) 1.40 H (0.11-0.59) K/uL Immature Gran # (Auto) 1.14 H (0.01-0.20) K/uL PT 49.5 H (9.0-12.0) Seconds INR 5.0 H (0.9-1.1) Potassium 3.2 L (3.5-5.1) mmol/L Chloride 97 L (98-107) mmol/L Anion Gap 17 H (3-11) BUN 36 H (6-23) mg/dl Creatinine 5.73 H* D (0.6-1.2) mg/dl BUN/Creatinine Ratio 6.3 L (10-20) Diagnostic Findings Head CT 11/14/23 09:13 CT SCAN OF THE BRAIN WITHOUT IV CONTRAST CLINICAL HISTORY: Change in mental status. COMPARISON STUDY: No priors. TECHNIQUE: Unenhanced axial CT scan of the brain is performed from the vertex to the skull base. A dose lowering technique was utilized adhering to the principles of ALARA. CT DOSE: 547.75 mGy.cm FINDINGS: Brain parenchyma: There are punctate scattered white matter calcifications. The brain parenchyma is otherwise normal in appearance. There is no hemorrhage, mass effect, or evidence of acute territorial ischemia by CT criteria. [place]-white matter differentiation is preserved. No extra-axial fluid collection is seen. Ventricles, sulci, cisterns: Normal in configuration. Intracranial vasculature: The visualized intracranial vasculature at the skull base is normal in appearance. Calvarium: Unremarkable. Sinuses and mastoids: There is mild mucosal thickening within the left ethmoid sinuses. The remaining visualized paranasal sinuses are clear. The mastoid air cells are well pneumatized. Orbits: The bony orbits are grossly intact. IMPRESSION: No acute intracranial abnormality. ACT 112: Negative or not required by law. Electronically signed by: Modesto Collado M.D. 11/14/2023 10:19 AM Medications Administered Home Medications Medication Instructions Recorded Confirmed Last Taken cholecalciferol (vitamin D3) 25 25 mcg PO DAILY 11/09/23 11/09/23 Unknown mcg (1,000 unit) chewable tablet (Vitamin D3) ferrous sulfate 325 mg (65 mg 325 mg PO DAILY 11/09/23 11/09/23 Unknown iron) tablet (FeroSul) folic acid 1 mg tablet 1 mg PO DAILY 11/09/23 11/09/23 Unknown hydroxychloroquine 200 mg tablet 400 mg PO HS 11/09/23 11/09/23 Unknown (Plaquenil) metoprolol tartrate 25 mg tablet 25 mg PO BID 11/09/23 11/09/23 Unknown omeprazole 20 mg tablet,delayed 20 mg PO DAILY 11/09/23 11/09/23 Unknown release prednisone 5 mg tablet 5 mg PO DAILY 11/09/23 11/09/23 Unknown sertraline 25 mg tablet 25 mg PO DAILY 11/09/23 11/09/23 Unknown Active Medications Generic Name Dose Route Start Last Admin Trade Name Freq PRN Reason Stop Dose Admin Diclofenac Sodium 1 gm 11/11/23 09:00 11/14/23 08:16 Diclofenac Sod 1% Gel 100 Gm Tube EXT 12/11/23 08:59 1 gm BID KIKA Administration Protocol Ferrous Sulfate 325 mg 11/09/23 09:00 11/14/23 10:22 Ferrous Sulfate 325 Mg Tab PO 12/09/23 08:59 325 mg DAILY KIKA Administration Folic Acid 1 mg 11/09/23 09:00 11/14/23 10:22 Folic Acid 1 Mg Tab PO 12/09/23 08:59 1 mg DAILY KIKA Administration Hydromorphone HCl 0.25 mg 11/10/23 10:23 11/14/23 10:21 Hydromorphone Inj 0.5 Mg/0.5 Ml Syr IV 11/24/23 10:22 0.25 mg Q6H PRN Administration Pain Hydroxychloroquine Sulfate 400 mg 11/09/23 21:00 11/13/23 20:19 Hydroxychloroquine Sulfate 200 Mg Tab PO 12/09/23 20:59 400 mg HS KIKA Administration Ceftriaxone Sodium 2,000 mg/ 50 mls @ 100 mls/hr 11/10/23 04:00 11/14/23 05:29 Dextrose IV 11/17/23 03:59 Infused Q24H KIKA Infusion Protocol Promethazine HCl 12.5 mg/ 50.5 mls @ 202 mls/hr 11/10/23 08:52 11/13/23 20:10 Sodium Chloride IV 12/10/23 08:51 Infused Q6H PRN Infusion Nausea And Vomiting Lorazepam 0.5 mg/ Syringe 0.5 mls @ 2 mls/min 11/14/23 12:00 11/14/23 14:01 IV 12/14/23 11:59 2 mls/min Q8H PRN Administration Anxiety/Agitation Metoprolol Tartrate 50 mg 11/11/23 21:00 11/14/23 10:21 Metoprolol Tartrate 50 Mg Tab PO 12/11/23 20:59 50 mg BID KIKA Administration Ondansetron HCl 4 mg 11/09/23 19:51 11/14/23 08:15 Ondansetron Inj 2 Mg/Ml 2 Ml Vial IV 12/09/23 19:50 4 mg Q6H PRN Administration Nausea And Vomiting Pantoprazole Sodium 40 mg 11/09/23 09:00 11/14/23 10:22 Pantoprazole 40 Mg Tab PO 12/09/23 08:59 40 mg DAILY KIKA Administration Prednisone 5 mg 11/09/23 09:00 11/14/23 10:22 Prednisone 5 Mg Tab PO 12/09/23 08:59 5 mg DAILY KIKA Administration Sertraline HCl 25 mg 11/09/23 09:00 11/14/23 10:22 Sertraline Hcl 50 Mg Tablet PO 12/09/23 08:59 25 mg DAILY KIKA Administration Tramadol HCl 50 mg 11/09/23 19:45 11/13/23 12:48 Tramadol Hcl 50 Mg Tablet PO 12/09/23 19:44 50 mg Q6H PRN Administration Mod-Sev Pain (Scale 4-10) Vitamin D 25 mcg 11/09/23 09:00 11/14/23 10:21 Cholecalciferol 25 Mcg (1000 Units) Tab PO 12/09/23 08:59 25 mcg DAILY KIKA Administration Warfarin Sodium 2.5 mg 11/13/23 16:00 11/13/23 16:58 Warfarin Sod 2.5 Mg Tab PO 12/13/23 15:59 2.5 mg DAILY@1600 KIKA Administration
--- NOTE | 2023-11-14 18:18 | Magnetic Resonance Report ---
MR brain wo con HISTORY: 33 years-old Female altered mental status acutely altered mental status COMPARISON: Head CT of same day TECHNIQUE: Multiplanar multisequence MRI of the brain was obtained without IV contrast. FINDINGS: Mildly motion degraded exam. No restricted diffusion. Midline structures appear unremarkable. Partial ly empty sella. There is no acute intracranial hemorrhage, midline shift, abnormal extra-axial collec tion, hydrocephalus or intra-axial mass. Minimal T2/FLAIR hyperintense foci noted throughout the whit e matter, likely of no clinical significance. Punctate scattered white matter calcifications again se en. The sinuses and major arterial flow voids appear patent. Skull, soft tissues are unremarkable. Mild m ucosal thickening of the paranasal sinuses, most pronounced in the left maxillary sinus. The mastoid air cells are clear. IMPRESSION: 1. Motion degraded exam without acute intracranial abnormality identified. 2. No acute or subacute infarct. 3. Partially empty sella. ACT 112: Negative or not required by law. The above report was generated using voice recognition software. It may contain grammatical, syntax o r spelling errors. Electronically signed by: Tariq Tuttle M.D. 11/14/2023 6:16 PM
[2023-11-14] MEDS ORDERED: VANCOMYCIN CONSULT ACTIVE PRN (18:39)
[2023-11-14] MEDS ORDERED: CEFEPIME 2,000 MG in SYRINGE 0 ML IV SCH (18:45)
[2023-11-14] MEDS ORDERED: VANCOMYCIN HCL 1,500 MG in SODIUM CHLORIDE 0.9% 500 ML IV ONE (18:45)
[2023-11-14] MEDS ORDERED: AMPICILLIN SOD 1 GM VIAL IV SCH (18:45)
[2023-11-14] MEDS ORDERED: VANCOMYCIN HCL 1,000 MG in SODIUM CHLORIDE 0.9% 500 ML IV SCH (18:45)
--- NOTE | 2023-11-14 19:20 | CT Scan Report ---
ABDOMEN AND PELVIS CT WITHOUT CONTRAST CT DOSE: 1435.85 mGy.cm HISTORY: Acute generalized abdominal pain. Reported history of recent renal biopsy with embolization, postprocedural bleeding and numerous blood transfusions hx of retorperitoneal bleed, supratherpaeut ic INR TECHNIQUE: Multiaxial CT images of the abdomen and pelvis were performed without contrast. A dose lo wering technique was utilized adhering to the principles of ALARA. COMPARISON STUDY: None FINDINGS: Limited exam without the use of IV contrast. The study is also motion degraded. Calcified b reast lesions noted bilaterally. Moderate sized left pleural effusion. A catheter is noted with dista l tip in the right atrium. Decreased attenuation of the cardiac blood pool compatible with anemia. Mi ld bibasilar densities favoring atelectasis. No free air. Ill-defined 3.3 cm wedge-shaped hypodensity of the mid spleena with artifact versus an a dditional hypodense focus on image 19 series 2. The pancreas is not well-visualized. Unremarkable adr enal glands. The gallbladder and liver are unremarkable. There is a large subcapsular hematoma of the right kidney measuring approximately 16 x 4 x 13 cm cont aining mixed attenuating blood products. Embolization coils also noted. 8 mm hyperdense focus suggest wm of a calcification within the superior pole right kidney. No hydronephrosis. Decompressed urinary bladder with wall thickening. IUD in the mid uterus. Unremarkable aorta. Nonspecific borderline enla rged retroperitoneal lymph nodes measure up to 10 mm. Nodularities in the left lower back may represe nt blood products extending through a lumbar hernia. No bowel obstruction or bowel wall thickening. There is a large amount of hemorrhage within the abdom en and pelvis which measures up to 22 x 7 cm in the lesser sac. Large component within the left retro peritoneum and involves the pararenal space and pericolic gutter measuring up to 12 x 12 x 25 cm with extension into the left hemipelvis. There is displacement of the adjacent bowel loops. Hemorrhage is in the right pararenal space/right paracolic gutter measures up to 5.3 x 3.9 cm on image 211. Layeri ng hemorrhage within the dependent pelvis. Hounsfield units of the hemorrhage is predominantly 10-20. No acute fracture. IMPRESSION: 1. There is a large right renal subcapsular hematoma with mixed attenuating blood products likely rep resenting acute on subacute bleed with embolization coils within the right renal sinus. 2. There is an extensive amount of intra-abdominal and intrapelvic blood products which appear acute/ subacute as detailed above involving the lesser sac, left greater than right pararenal distributions and pericolic gutters predominantly. Evaluation is overall limited without the use of IV contrast. 3. Ill-defined hypodensities of the spleen suggestive of splenic infarcts. 4. No bowel obstruction or bowel wall thickening. 5. Moderate-sized left pleural effusion. ACT 112: Negative or not required by law. The above report was generated using voice recognition software. It may contain grammatical, syntax o r spelling errors. Electronically signed by: Tariq Tuttle M.D. 11/14/2023 7:18 PM
--- NOTE | 2023-11-14 19:39 | Discharge Summary ---
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 Patient was initially presented to [facility] with shortness of breath and cough and fever ongoing for a week. Initial workup showed severe ABIODUN. She was treated with IV antibiotics for possible sepsis and subsequently transferred to [facility] for further evaluation. Blood cultures were negative. IgM Lyme antibody was positive and was started on doxycycline. CT PE study was considered for shortness of breath but because of rapidly worsening kidney function CT PE was not done. Her ABIODUN is thought to be possibly from exacerbated lupus nephritis. Renal biopsy findings suggested collapsing glomerulonephritis, form of focal segmental glomera sclerosis. She was treated with pulse dose steroids and started on intermittent hemodialysis due to deteriorating kidney function. Following the biopsy she developed perinephric hematoma and required arterial embolization. She suffered from severe posthemorrhagic anemia needing multiple blood transfusions and experienced a delayed hemolytic transfusion reaction attributed to the JKa antigen. She was also tested positive for CMV viremia. She was treated for suspected CMV colitis and spontaneous bacterial peritonitis with valganciclovir, cefepime and metronidazole.. ID recommended weekly CMV titers for 4 weeks and to be followed by ID outpatient 6 to 8 weeks.Also to be followed by Nephrology, rheumatology and hematology Past medical history. As mentioned above. Past surgical history. Colonoscopy. Dental surgery. IR artery embolization. IR biopsy. Reduction of breast. Tonsillectomy adenoidectomy. Family history. Mother had blood clot. ND. Lupus. Renal failure. Stroke multiple. COVID. Aunt had sarcoidosis. Maternal aunt had breast cancer. Admission Exam Per Admitting Provider General- Not in acute distress Head- atraumatic Eyes- PERRL. ENT- oropharynx dry Neck- supple, no JVD. Lungs- clear to auscultation no wheezing or crackles Heart- regular rhythm;Tachycardia no murmur, no gallop. Abdomen- normal bowel sounds, soft, nontender, no distension Extremities- Right forearm swollen Neuro- alert, oriented PERRL, no facial palsy; no dysarthria; moves extremities. 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 She presented to [facility] with numbness in right upper extremity and ultrasound showed DVT. Patient initially presented to [facility] with shortness of breath, cough and fever ongoing for a week before being transferred to [facility] in September 2023. Initial workup showed severe ABIODUN. She was treated with IV anti biotics for possible sepsis and subsequently transferred to [facility] for further evaluation. Blood cultures were negative. IgM Lyme antibody was positive and was started on doxycycline. CT PE study was considered for shortness of breath but because of rapidly worsening kidney function CT PE was not done. Her ABIODUN was thought to be possibly from exacerbated lupus nephritis. Renal biopsy findings suggested collapsing glomerulonephritis, a form of focal segmental glomerulosclerosis. She was treated with pulse dose steroids and started on intermittent hemodialysis due to deteriorating kidney function. Following the biopsy she developed a perinephric hematoma and required arterial embolization. She suffered from severe posthemorrhagic anemia needing multiple blood transfusions and experienced a delayed hemolytic transfusion reaction attributed to the JKa antigen. She also tested positive for CMV viremia. She was treated for suspected CMV colitis and spontaneous bacterial peritonitis with valganciclovir, cefepime and metronidazole. ID recommended weekly CMV titers for 4 weeks and she was to be followed by ID outpatient for 6 to 8 weeks. Also needed to be followed by Nephrology, rheumatology and hematology. At [facility] she was treated for "deep venous thrombus within the right innominate vein that extends into the right internal jugular vein. In addition, there is a focus of deep venous thrombus within the right subclavian vein that extends into the right cephalic vein." after presenting with numbness in the RUE. She was started on a heparin drip on admission and per previous provider's discussion with hematology, she was transitioned to po warfarin. Her INR subsequently jumped from 2.6 to 5.0 over the course of one day. On that day, she also became acutely confused and agitated, trying to climb out of bed, requiring multiple doses of Ativan and a one to one sitter. She was not able to have dialysis completed (Cr 5.73 at that time) due to agitation. A stat head CT was ordered which did not show an acute bleed. Subsequent brain MRI noted no acute changes. Neurology and Psychiatry were consulted and both recommended transfer to a tertiary care center such as [facility] for further evaluation of neuropsych SLE and associated morbidity/mortality. In particular, Psychiatry recommended the following: cautious use of Ativan, avoid Haldol given risks of EPS and cardiac risks, can use risperidone francisco tab 0.5mg BID ODT prn for agitation if able to take po and if absolutely required, can use olanzapine 2.5mg IM. However should not exceed 5mg in 24 hours, and should not be given within 1 hour or concurrently with IM/IV benzos. Neurology recommended starting IV antibiotics to cover an infectious [employer] cause as lumbar puncture will likely be delayed for days due to the supratherapeutic INR. She was started on renally dosed Cefepime 1g IV q24h, Ampicillin 2g q12h and Vancomycin 1250mg one dose before discharge. Consults were placed to Infectious Disease and Rheumatology. She was also seen by Nephrology. [facility] was contacted and pt was accepted for transfer. While awaiting transfer a previously ordered CT abdomen pelvis was read and noted extensive amount of intra-abdominal and intrapelvic blood products which appear acute/subacute, acute on subacute right renal hematoma with noted embolization coils and large left pleural effusion. Her Hemoglobin was 10, up from a previous 9.6 the day before. She was hypertensive with her chronic sinus tachycardia noted. She was seen by cardiology for the sinus tachycardia on admission and they recommended the following "Would continue patient's outpatient dose of metoprolol to tartrate to 25 mg twice daily for now without titration as tachycardia not unexpected in the setting of significant anemia and DVT.". She had no increased oxygen requirement. Discharge Exam General: Alert, agitated Psych: agitated mood and affect Neuro: disoriented HEENT: NC/AT CV: RRR Resp: Breath sounds clear bilaterally, no increased effort of breathing. Abdomen:Soft Updated Medication List Medication Instructions Recorded Confirmed Type cholecalciferol (vitamin D3) 25 25 mcg PO DAILY 11/09/23 11/09/23 History mcg (1,000 unit) chewable tablet (Vitamin D3) ferrous sulfate 325 mg (65 mg 325 mg PO DAILY 11/09/23 11/09/23 History iron) tablet (FeroSul) folic acid 1 mg tablet 1 mg PO DAILY 11/09/23 11/09/23 History hydroxychloroquine 200 mg tablet 400 mg PO HS 11/09/23 11/09/23 History (Plaquenil) metoprolol tartrate 25 mg tablet 25 mg PO BID 11/09/23 11/09/23 History omeprazole 20 mg tablet,delayed 20 mg PO DAILY 11/09/23 11/09/23 History release prednisone 5 mg tablet 5 mg PO DAILY 11/09/23 11/09/23 History sertraline 25 mg tablet 25 mg PO DAILY 11/09/23 11/09/23 History Additional Medication Comments Current Inpatient Medications Acetaminophen (Acetaminophen 325 Mg Tab) 650 mg PO Q4H PRN PRN Reason: Pain or Fever Stop: 12/09/23 07:40 Diclofenac Sodium (Diclofenac Sod 1% Gel 100 Gm Tube) 1 gm EXT BID [facility]; Protocol Stop: 12/11/23 08:59 Last Admin: 11/14/23 08:16 Dose: 1 gm Ferrous Sulfate (Ferrous Sulfate 325 Mg Tab) 325 mg PO DAILY [facility] Stop: 12/09/23 08:59 Last Admin: 11/14/23 10:22 Dose: 325 mg Folic Acid (Folic Acid 1 Mg Tab) 1 mg PO DAILY [facility] Stop: 12/09/23 08:59 Last Admin: 11/14/23 10:22 Dose: 1 mg Hydromorphone HCl (Hydromorphone Inj 0.5 Mg/0.5 Ml Syr) 0.25 mg IV Q6H PRN PRN Reason: Pain Stop: 11/24/23 10:22 Last Admin: 11/14/23 10:21 Dose: 0.25 mg Hydroxychloroquine Sulfate (Hydroxychloroquine Sulfate 200 Mg Tab) 400 mg PO HS KIKA Stop: 12/09/23 20:59 Last Admin: 11/13/23 20:19 Dose: 400 mg Promethazine HCl 12.5 mg/ (Sodium Chloride) 50.5 mls @ 202 mls/hr IV Q6H PRN PRN Reason: Nausea And Vomiting Stop: 12/10/23 08:51 Last Infusion: 11/13/23 20:10 Dose: Infused Lorazepam 0.5 mg/ Syringe 0.5 mls @ 2 mls/min IV Q8H PRN PRN Reason: Anxiety/Agitation Stop: 12/14/23 11:59 Last Admin: 11/14/23 14:01 Dose: 2 mls/min Ampicillin Sodium 2,000 mg/ (Sodium Chloride) 100 mls @ 200 mls/hr IV Q12H KIKA Stop: 11/24/23 18:59 Cefepime HCl 1,000 mg/ Syringe 10 mls @ 5 mls/min IV Q24H KIKA Stop: 11/24/23 18:59 Magnesium Sulfate/Dextrose (Magnesium Sulfate / D5w) 1 gm in 100 mls @ 50 mls/hr IV Q2H KIKA Stop: 11/15/23 00:14 Metoprolol Tartrate (Metoprolol Tartrate 50 Mg Tab) 50 mg PO BID [facility]A Stop: 12/11/23 20:59 Last Admin: 11/14/23 10:21 Dose: 50 mg Metoprolol Tartrate (Metoprolol Tartrate 1 Mg/Ml Vial) 2.5 mg IV NOW STA Stop: 11/14/23 20:49 Miscellaneous Information (Vancomycin Consult Active) 1 each N/A UD PRN PRN Reason: Consult Stop: 12/14/23 18:38 Nitroglycerin (Nitroglycerin Sl 0.4 Mg/Tab Tab) 0.4 mg SL Q5M PRN PRN Reason: Chest Pain Stop: 12/09/23 07:40 Olanzapine (Olanzapine 10 Mg/2.1 Ml Sdv) 2.5 mg IM Q4H PRN PRN Reason: Agitation Stop: 12/14/23 20:04 Ondansetron HCl (Ondansetron Inj 2 Mg/Ml 2 Ml Vial) 4 mg IV Q6H PRN PRN Reason: Nausea And Vomiting Stop: 12/09/23 19:50 Last Admin: 11/14/23 08:15 Dose: 4 mg Pantoprazole Sodium (Pantoprazole 40 Mg Tab) 40 mg PO DAILY [facility] Stop: 12/09/23 08:59 Last Admin: 11/14/23 10:22 Dose: 40 mg Polyethylene Glycol (Polyethylene (Miralax) 17 Gm Pack) 17 gm PO DAILY PRN PRN Reason: Constipation Stop: 12/09/23 07:40 Prednisone (Prednisone 5 Mg Tab) 5 mg PO DAILY [facility] Stop: 12/09/23 08:59 Last Admin: 11/14/23 10:22 Dose: 5 mg Sertraline HCl (Sertraline Hcl 50 Mg Tablet) 25 mg PO DAILY [facility] Stop: 12/09/23 08:59 Last Admin: 11/14/23 10:22 Dose: 25 mg Tramadol HCl (Tramadol Hcl 50 Mg Tablet) 50 mg PO Q6H PRN PRN Reason: Mod-Sev Pain (Scale 4-10) Stop: 12/09/23 19:44 Last Admin: 11/13/23 12:48 Dose: 50 mg Vitamin D (Cholecalciferol 25 Mcg (1000 Units) Tab) 25 mcg PO DAILY [facility] Stop: 12/09/23 08:59 Last Admin: 11/14/23 10:21 Dose: 25 mcg Warfarin Sodium (Warfarin Sod 2.5 Mg Tab) 2.5 mg PO DAILY@1600 [facility] Stop: 12/13/23 15:59 Last Admin: 11/13/23 16:58 Dose: 2.5 mg Hospital Stay Data Consultations 11/09/23 03:38 ED Decision to Admit Stat 11/09/23 08:00 Consult Cardiology Routine Consult Nephrology Routine 11/14/23 10:45 Consult Psychiatry Routine 11/14/23 15:36 Consult Neurology Routine Diagnostic Imagining Performed 11/08/23 22:52 US venous doppler UE RT Stat 11/11/23 03:29 US venous doppler UE LT Urgent 11/14/23 09:[address] [CT head/brain wo con] Urgent 11/14/23 15:32 MRI Brain [MR brain wo con] Urgent 11/14/23 15:40 CT abd pelvis wo con Urgent Venous Doppler Study 11/08/23 22:52 Exam(s): US VENOUS RIGHT UPPER EXTREMITY EXAM: US Duplex Right Upper Extremity Veins CLINICAL HISTORY: Reason for exam: ? DVT. TECHNIQUE: Real-time duplex ultrasound scan of the right upper extremity veins integrating B-mode two-dimensional vascular structure, Doppler spectral analysis, color flow Doppler imaging and compression. COMPARISON: None. FINDINGS: Deep veins: Unremarkable. No DVT in the internal jugular, subclavian, axillary, or brachial veins. The veins demonstrate normal color flow, are normally compressible, with normal phasic flow and/or augmentation response. Superficial veins: Unremarkable. No thrombus in the visualized basilic and cephalic veins. Soft tissues: No acute findings. IMPRESSION: No ultrasonographic evidence of deep venous thrombosis involving the right upper extremity. Electronically signed by: Lauren Merrill MD 11/09/23 02:42 AM ADDENDUM Addendum: Upon further review, note is made of deep venous thrombus within the right innominate vein that extends into the right internal jugular vein. In addition, there is a focus of deep venous thrombus within the right subclavian vein that extends into the right cephalic vein. Electronically signed by: Esteban Novak M.D. 11/09/2023 3:18 AM Chest X-Ray 11/08/23 22:53 XR chest 1V portable HISTORY: Sepsis COMPARISON: None. FINDINGS: There are low lung volumes. No pneumothorax. The cardiac silhouette is borderline enlarged. The left central venous catheter which terminates at the superior cavoatrial junction. Hazy appearance to the left lung base may represent a small pleural effusion or opacity. The right lung is clear. No evidence for pulmonary edema. IMPRESSION: Hazy appearance to left lung base may represent a small layering pleural effusion versus airspace opacity. ACT 112: Negative or not required by law. Electronically signed by: Greg Day M.D. 11/09/2023 7:19 AM Extremity Venous Study 11/11/23 03:29 LEFT UPPER EXTREMITY VENOUS DOPPLER HISTORY: Left arm pain and swelling. dvt? COMPARISON STUDY: None. FINDINGS: The patient's overlying intravenous lines and bandages results in difficult evaluation. The technologist was unable to assess the left inferior internal jugular vein, innominate vein, proximal to mid subclavian vein, and proximal radial and ulnar veins. Otherwise, the visualized left internal jugular vein is patent. There is normal flow within the distal left subclavian vein. There is normal flow and compressibility within the visualized left axillary, basilic, brachial, radial, and ulnar veins. Superficial thrombus identified within the left cephalic vein at the antecubital fossa. IMPRESSION: 1. No definite DVT within the left upper extremity with limitations as described above. 2. Superficial thrombus identified within the left cephalic vein at the antecubital fossa. ACT 112: Negative or not required by law. Electronically signed by: Greg Day M.D. 11/11/2023 7:[address] 11/14/23 09:13 CT SCAN OF THE BRAIN WITHOUT IV CONTRAST CLINICAL HISTORY: Change in mental status. COMPARISON STUDY: No priors. TECHNIQUE: Unenhanced axial CT scan of the brain is performed from the vertex to the skull base. A dose lowering technique was utilized adhering to the principles of ALARA. CT DOSE: 547.75 mGy.cm FINDINGS: Brain parenchyma: There are punctate scattered white matter calcifications. The brain parenchyma is otherwise normal in appearance. There is no hemorrhage, mass effect, or evidence of acute territorial ischemia by CT criteria. Pompa-white matter differentiation is preserved. No extra-axial fluid collection is seen. Ventricles, sulci, cisterns: Normal in configuration. Intracranial vasculature: The visualized intracranial vasculature at the skull base is normal in appearance. Calvarium: Unremarkable. Sinuses and mastoids: There is mild mucosal thickening within the left ethmoid sinuses. The remaining visualized paranasal sinuses are clear. The mastoid air cells are well pneumatized. Orbits: The bony orbits are grossly intact. IMPRESSION: No acute intracranial abnormality. ACT 112: Negative or not required by law. Electronically signed by: Modesto Collado M.D. 11/14/2023 10:19 AM Brain MRI 11/14/23 15:32 MR brain wo con HISTORY: 33 years-old Female altered mental status acutely altered mental status COMPARISON: Head CT of same day TECHNIQUE: Multiplanar multisequence MRI of the brain was obtained without IV contrast. FINDINGS: Mildly motion degraded exam. No restricted diffusion. Midline structures appear unremarkable. Partially empty sella. There is no acute intracranial hemorrhage, midline shift, abnormal extra-axial collection, hydrocephalus or intra-axial mass. Minimal T2/FLAIR hyperintense foci noted throughout the white matter, likely of no clinical significance. Punctate scattered white matter calcifications again seen. The sinuses and major arterial flow voids appear patent. Skull, soft tissues are unremarkable. Mild mucosal thickening of the paranasal sinuses, most pronounced in the left maxillary sinus. The mastoid air cells are clear. IMPRESSION: 1. Motion degraded exam without acute intracranial abnormality identified. 2. No acute or subacute infarct. 3. Partially empty sella. ACT 112: Negative or not required by law. The above report was generated using voice recognition software. It may contain grammatical, syntax or spelling errors. Electronically signed by: Tariq Tuttle M.D. 11/14/2023 6:16 PM Abdomen/Pelvis CT 11/14/23 15:[address] WITHOUT CONTRAST CT DOSE: 1435.85 mGy.cm HISTORY: Acute generalized abdominal pain. Reported history of recent renal biopsy with embolization, postprocedural bleeding and numerous blood transfusions hx of retorperitoneal bleed, supratherpaeutic INR TECHNIQUE: Multiaxial CT images of the abdomen and pelvis were performed without contrast. A dose lowering technique was utilized adhering to the principles of ALARA. COMPARISON STUDY: None FINDINGS: Limited exam without the use of IV contrast. The study is also motion degraded. Calcified breast lesions noted bilaterally. Moderate sized left pleural effusion. A catheter is noted with distal tip in the right atrium. Decreased attenuation of the cardiac blood pool compatible with anemia. Mild bibasilar densities favoring atelectasis. No free air. Ill-defined 3.3 cm wedge-shaped hypodensity of the mid spleena with artifact versus an additional hypodense focus on image 19 series 2. The pancreas is not well-visualized. Unremarkable adrenal glands. The gallbladder and liver are unremarkable. There is a large subcapsular hematoma of the right kidney measuring approximately 16 x 4 x 13 cm containing mixed attenuating blood products. Embolization coils also noted. 8 mm hyperdense focus suggestive of a calcification within the superior pole right kidney. No hydronephrosis. Decompressed urinary bladder with wall thickening. IUD in the mid uterus. Unremarkable aorta. Nonspecific borderline enlarged retroperitoneal lymph nodes measure up to 10 mm. Nodularities in the left lower back may represent blood products extending through a lumbar hernia. No bowel obstruction or bowel wall thickening. There is a large amount of hemorrhage within the abdomen and pelvis which measures up to 22 x 7 cm in the lesser sac. Large component within the left retroperitoneum and involves the pararenal space and pericolic gutter measuring up to 12 x 12 x 25 cm with extension into the left hemipelvis. There is displacement of the adjacent bowel loops. Hemorrhage is in the right pararenal space/right paracolic gutter measures up to 5.3 x 3.9 cm on image 211. Layering hemorrhage within the dependent pelvis. Hounsfield units of the hemorrhage is predominantly 10-20. No acute fracture. IMPRESSION: 1. There is a large right renal subcapsular hematoma with mixed attenuating blood products likely representing acute on subacute bleed with embolization coils within the right renal sinus. 2. There is an extensive amount of intra-abdominal and intrapelvic blood products which appear acute/subacute as detailed above involving the lesser sac, left greater than right pararenal distributions and pericolic gutters predominantly. Evaluation is overall limited without the use of IV contrast. 3. Ill-defined hypodensities of the spleen suggestive of splenic infarcts. 4. No bowel obstruction or bowel wall thickening. 5. Moderate-sized left pleural effusion. ACT 112: Negative or not required by law. The above report was generated using voice recognition software. It may contain grammatical, syntax or spelling errors. Electronically signed by: Tariq Tuttle M.D. 11/14/2023 7:18 PM Pending Results Patient Have Any Pending Studies at Discharge: No Discharge Instructions Given to Patient (Per Discharging Provider) Dena You are being transferred to [facility] for further evaluation of neuropsychiatric changes in the setting of SLE. Total Time Total Time Spent Total Time Spent (In Minutes): >30 minutes
[2023-11-14] MEDS: NALOXONE HCL 0.4 MG/1 ML VIAL/CARP ONE (19:58)
[2023-11-14] MEDS ORDERED: OLANZapine 10 MG/2.1 ML SDV IM PRN (20:05)
--- NOTE | 2023-11-14 20:10 | Communication Note ---
Date of Service: November 14, 2023 Code purple called. Patient noted to have decreased responsiveness and irregular breathing as per RN. Improved signs and symptoms post Narcan and flumazenil administration. Hold as needed narcotics and benzos for now.
[2023-11-14] MEDS: FLUMAZENIL 0.1 MG/1 ML 10 ML VIAL IV STA ×2 (20:13→20:41)
[2023-11-14] MEDS: METOPROLOL TARTRATE 1 MG/ML VIAL IV STA ×2 (20:26→20:58)
[2023-11-14 20:42] LABS: Base Excess VBG -4.4 mEq/L; HCO3 VBG 20 mmol/L; Oxygen Saturation VBG < 60.0 %; PCO2 VBG 35 mmHg (38-50); PO2 VBG 31 mmHg; pH VBG 7.37 (7.36-7.41)
[2023-11-14] MEDS: AMPICILLIN 2,000 MG in SODIUM CHLOR 0.9% MINI-B 100 ML IV SCH (21:11)
[2023-11-14] MEDS: CEFEPIME 1,000 MG in SYRINGE 0 ML IV SCH (21:17)
[2023-11-14] MEDS: VANCOMYCIN HCL 1,250 MG in SODIUM CHLORIDE 0.9% 250 ML IV ONE (21:23)
[2023-11-14 21:50] LABS: Albumin Globulin Ratio 0.8 (0.9-2); Albumin Level 2.8 gm/dl (3.4-5.0); BUN Creatinine Ratio 6.2 (10-20); Bilirubin,Total 0.6 mg/dl (0.2-1.0); Calcium 9.3 mg/dl (8.6-10.3); Creatinine Clr Calc Pharmacy 10.5 ml/min; Est GFR (African American) 9.4 ml/min; Est GFR (Non-African American) 8.1 ml/min; Globulin 3.5 gm/dl (2.5-4.0); Potassium 3.7 mmol/L (3.5-5.1); Total Protein 6.3 gm/dl (6.0-8.3)
[2023-11-14] MEDS: MAGNESIUM SULFATE / D5W 1 GM/100 ML BAG IV SCH (21:59)
[2023-11-14] MEDS: NALOXONE HCL 0.4 MG/1 ML VIAL/CARP IV STA (22:38)
[2023-11-14] MEDS: FLUMAZENIL 0.1 MG/1 ML 10 ML VIAL IV ONE (22:39)
[2023-11-14] MEDS: METOPROLOL TARTRATE 1 MG/ML VIAL IV SCH (23:58)
[2023-11-14] MEDS: ACETAMINOPHEN 1,000 MG/100 ML VIAL IV PRN (23:58)
[2023-11-15 00:37] LABS: Hematocrit (blood only) 30.2 % (37.0-47.0); Hemoglobin 9.8 g/dl (12.0-16.0)
--- NOTE | 2023-11-15 07:22 | XRay Report ---
SINGLE VIEW CHEST CLINICAL HISTORY: Dyspnea FINDINGS: 2 AP, portable, upright chest radiographs are compared to study dated 11/08/2023. The examin ation is degraded by portable technique and patient rotation. A left-sided central venous catheter is unchanged in position. The cardiomediastinal silhouette is unremarkable. There are small pleural eff usions with dependent atelectasis. No pneumothorax is seen. The bony thorax is grossly intact. IMPRESSION: Small pleural effusions with dependent atelectasis. ACT 112: Negative or not required by law. Electronically signed by: Modesto Collado M.D. 11/15/2023 7:20 AM
--- NOTE | 2023-11-16 10:07 | Coding Query ---
CODING QUERY To promote full compliance with coding requirements relating to patient care, provider participation is requested in all cases of night cleaner uncertainty. Please assist us with the question(s) below: Coding Question(s): Acute Kidney Injury is documented in the record and there is also documentation by attending of, "ABIODUN/CKD", and documentation on the 11/08 Cardiology Consultation of, "ESRD on dialysis MWF". There is documentation, as on the 11/08 Nephrology Consultation and on Nephrology Progress Notes of, "Even though rise of the creatinine seems like acute kidney injury there is a high possibility she will not have renal recovery and likely will be dialysis dependent". Please specify below, in your clinical opinion, to determine if there is any possible CKD, ESRD, in addition to Acute Kidney Injury: ( ) there is possible CKD requiring chronic dialysis, and/or ESRD ( ) there is NO possible CKD requiring chronic dialysis, and NO possible ESRD ( ) there is possible CKD, but not requiring chronic dialysis, and not ESRD. Please specify the stage of possible CKD, if known: ( ) Other: Please Specify Physician's Response(s): first option. this is ABIODUN currently needing dialysis and very likely Will end up being ESRD. it takes few months before we know it for Sure. Thank you Payton Seth Principal Diagnosis: "that condition established after study, to be chiefly responsible for occasioning the admission of the patient to the hospital for care." Co-Existing Principal Diagnosis: "when two or more diagnoses equally meet the criteria for principal diagnosis as determined by the circumstances of admission, diagnostic work up, and/or therapy provided, and the Alphabetic Index, Tabular List, or another coding guideline does not provide sequencing direction, any one of the diagnoses may be sequenced first." "When the physician has documented what appears to be a current diagnosis in the body of the record, but has not included the diagnosis in the final diagnostic statement, the physician should be asked whether the diagnosis should be added." ([facility] 2 QTR90. p3-4) YANELI
--- NOTE | 2023-11-16 12:38 | Electrocardiogram Report ---
Test Reason : Blood Pressure : / mmHG Vent. Rate : 137 BPM Atrial Rate : 137 BPM P-R Int : 120 ms QRS Dur : 078 ms QT Int : 302 ms P-R-T Axes : 044 048 062 degrees QTc Int : 456 ms Poor data quality, interpretation may be adversely affected Sinus tachycardia Left ventricular hypertrophy with repolarization abnormality Nonspecific ST abnormality Inferior leads and lateral leads Abnormal ECG When compared with ECG of 11-NOV-2023 05:36, HR has increased Non-specific change in ST segment in Inferior leads Non-specific change in ST segment in Lateral leads Confirmed by Tyler Rodriguez ([id number]) on 11/16/2023 12:37:39 PM Referred By: REFERRED SELF Confirmed By:Tyler Rodriguez
[2023-11-17 05:17] LABS: Anti Cardiolipin Ab IgG <2.0 GPL-U/mL (<20.0); Anti Cardiolipin Ab IgM <2.0 MPL-U/mL (<20.0); Anti-Cardiolipin Ab IgA <2.0 APL-U/mL (<20.0); B2 Glycoprotein IgA <2.0 U/mL (<20.0); B2 Glycoprotein IgG 3.2 U/mL (<20.0); B2 Glycoprotein IgM <2.0 U/mL (<20.0); Phosphatidylser Prothrom IgG 13 U (<=30); Phosphatidylserine ProthromIgM 43 U (<=30)
== END 2023-11-15 02:48 | disposition short-term general hospital (02) | DRG 299 ==
LOC: ED 22:28 → SUATTDRO 11-09 06:53 → EDINP 11-09 06:53 → 2S 11-09 16:03